=== PATIENT | male | born 1950 | race Caucasian/White ===

== ENCOUNTER 2019-11-01 05:17 | Inpatient (IN) | payer MEDICARE, BC ==
[2019-11-01] VITALS (10 sets, daily range): BP systolic 130–154; BP diastolic 72–86
[~2019-11-01] VITALS: Ht 172.7 cm; Wt 90.1 kg
[2019-11-01] MEDS ORDERED: famotidine/PF 10 mg/ml inj IV ONE (05:35)
[2019-11-01] MEDS ORDERED: pantoprazole 40 MG vial IV ONE (05:35)
[2019-11-01] MEDS ORDERED: HYDR-4353 PO (05:56)
[2019-11-01] MEDS ORDERED: TRAZ-251 PO (05:56)
[2019-11-01] MEDS ORDERED: SYN0.088T PO (05:56)
[2019-11-01] MEDS ORDERED: SIMV10TA2 PO (05:56)
[2019-11-01] MEDS ORDERED: LOSA25TA96 PO (05:56)
[2019-11-01] MEDS ORDERED: OMEP40CA13 PO (05:56)
[2019-11-01 06:01] LABS: BASOPHILS % (AUTO) 0.3 % (0-1); EOSINOPHILS % (AUTO) 0.5 % (0-6); HEMATOCRIT 36.3 % (42.0-52.0); HEMOGLOBIN 12.5 g/dl (14.0-17.9); LYMPHOCYTES # (AUTO) 1.1 X10'3 (1.1-4.8); LYMPHOCYTES % (AUTO) 15.1 % (21-51); MEAN CORPUSCULAR HEMOGLOBIN 35.8 PG (27.0-31.0); MEAN CORPUSCULAR HGB CONC 34.4 g/dL (33.0-36.5); MEAN CORPUSCULAR VOLUME 104.1 FL (78-98); MONOCYTES % (AUTO) 13.9 % (2-12); NEUTROPHILS % (AUTO) 70.2 % (42-75); PLATELET COUNT 146 X10'3 (140-440); RED BLOOD COUNT 3.49 X10'6 (4.70-6.10); WHITE BLOOD COUNT 7.1 X10'3 (4.5-11.0)
[2019-11-01 06:05] LABS: ALANINE AMINOTRANSFERASE 10 U/L (12-78); ALBUMIN 2.5 G/DL (3.4-5.0); ALBUMIN/GLOBULIN RATIO 0.8 (1.1-1.5); ALKALINE PHOSPHATASE 58 IU/L (46-116); ANION GAP 9 (8-16); ASPARTATE AMINO TRANSFERASE 31 U/L (10-37); BILIRUBIN,TOTAL 0.5 MG/DL (0.1-1.0); BLOOD UREA NITROGEN 25 MG/DL (7-18); BUN/CREATININE RATIO 11.7 (5.4-32.0); CHLORIDE 106 MMOL/L (99-107); CREATININE 2.14 MG/DL (0.60-1.10); GLUCOSE 114 MG/DL (70-104); SODIUM 142 MMOL/L (135-145); TOTAL CARBON DIOXIDE 27.5 MMOL/L (24-32); TOTAL PROTEIN 5.8 G/DL (6.4-8.2); eGFR 31 ML/MIN
[2019-11-01 06:06] LABS: D-DIMER 0.62 MG/L FEU (0-0.50)
[2019-11-01] MEDS ORDERED: heparin 25,000 UNIT/250ml bag 250 ML IV SCH (06:09)
[2019-11-01] MEDS ORDERED: heparin 10,000 units/1 ML INJ IV ONE ×2 (06:10→06:25)
[2019-11-01] MEDS ORDERED: heparin 10,000 units/1 ML INJ IV PRN (06:10)
--- NOTE | 2019-11-01 06:20 | NUR ---
received report from KRISHNA garrido
[2019-11-01] MEDS ORDERED: METO-292 PO (06:31)
--- NOTE | 2019-11-01 06:43 | NUR ---
ANATOLIY SQUIRES, HOME: [phone], CELL [phone]
--- NOTE | 2019-11-01 06:49 | NUR ---
CALLED LAB TO [facility] ON PT INR LABS PER BLOOD DRAW EARLIER, WILL START HEPARIN AFTER LABS HAVE RESULTED, WILL START SECOND IV NOW PT HAS FIELD START AND WILL BE GETTING HEPARIN. PT SPOUSE WAS AT BEDSIDE BUT HAS LEFT HER NUMBERS WITH TRIPLE DRUM OPERATOR TO CALL IF PT GOES UPSTAIRS TO IP BED.
--- NOTE | 2019-11-01 07:00 | NUR ---
PT VS STABLE, PT IS CURRENTLY PAIN FREE, INITIATED 20 GAUGE IV RAC, PT SITTING UP IN BED UPDATED TO PLAN OF CARE, ORIENTED TO CALL LIGHT, WAITING ON LAB RESULTS TO START IV HEPARIN.
[2019-11-01 07:09] LABS: PARTIAL THROMBOPLASTIN TIME 27 SECONDS (22-32)
[2019-11-01] MEDS ORDERED: normal saline 1000ml 1,000 ML IV SCH (07:21)
[2019-11-01] MEDS ORDERED: aspirin 81mg tab.chew PO STA (07:21)
[2019-11-01] MEDS ORDERED: potassium Cl 20 mEq SR tablet PO PRN ×2 (07:25)
[2019-11-01] MEDS ORDERED: nitroGLYCERIN 0.4mg SUBLingual tab SL PRN ×2 (07:25→11:00)
[2019-11-01] MEDS ORDERED: ondansetron/PF 4mg/2ml inj IV PRN (07:25)
[2019-11-01] MEDS ORDERED: acetaminophen 325mg tablet PO PRN ×2 (07:25)
[2019-11-01] MEDS ORDERED: magnesium 2GM in 50ml NS 50 ML IV PRN (07:25)
[2019-11-01] MEDS ORDERED: morphine 2 MG/ML inj. syringe IV PRN ×2 (07:25)
[2019-11-01] MEDS ORDERED: acetaminophen 650mg rectal suppository RC PRN (07:25)
[2019-11-01] MEDS ORDERED: magnesium hydroxide 30ml (MOM) UD suspension PO PRN (07:25)
[2019-11-01] MEDS ORDERED: potassium CL 10mEq/100ml bag 100 ML IV PRN ×2 (07:25)
[2019-11-01] MEDS ORDERED: diphenhydrAMINE 25mg capsule PO PRN (07:25)
[2019-11-01] MEDS ORDERED: mag hydrox/Alum hydrox/simeth 30ml oral suspension PO PRN (07:25)
[2019-11-01] MEDS ORDERED: HYDROcodone/acetaminophen 5mg/325mg tablet PO PRN (07:25)
[2019-11-01] MEDS ORDERED: bisacodyl 10mg suppository rectal RC PRN (07:25)
[2019-11-01] MEDS ORDERED: magnesium Cl slow-release 64mg tablet PO PRN (07:25)
[2019-11-01] MEDS ORDERED: magnesium 4gm in 100ml NS 100 ML IV PRN (07:25)
[2019-11-01] MEDS: heparin 25,000 UNIT/250ml bag 250 ML IV SCH (07:39)
[2019-11-01] MEDS: K and/or MAG REPLACEMENT MC SCH (08:00)
[2019-11-01] MEDS ORDERED: lisinopril 10 MG tablet PO SCH (08:00)
[2019-11-01] MEDS ORDERED: OMEP-297 PO (08:04)
[2019-11-01] MEDS ORDERED: TRAZ150T78 PO (08:04)
[2019-11-01] MEDS ORDERED: HYDR-3972 PO (08:04)
[2019-11-01] MEDS ORDERED: SIMV40TA PO (08:04)
[2019-11-01] MEDS ORDERED: LEVO175T2 PO (08:04)
[2019-11-01] MEDS ORDERED: LOSA100T57 PO (08:04)
--- NOTE | 2019-11-01 08:40 | NUR ---
Pt arrived from ED via gurney, able to ambulate by self, gait steady. Pt wanted to use the bathroom first.
[2019-11-01] MEDS ORDERED: PROP20TA6 PO (08:44)
[2019-11-01] MEDS ORDERED: FINA5TAB11 PO (08:44)
[2019-11-01] MEDS: aspirin 81mg tablet.DR PO SCH (09:04)
[2019-11-01] MEDS: carVEDilol 3.125mg tablet PO SCH ×2 (09:05→19:30)
[2019-11-01] MEDS: nitroGLYCERIN 0.2mg/hour patch TD SCH (09:06)
[2019-11-01 09:35] LABS: HEMOGLOBIN A1C 5.3 % (4.5-6.2)
[2019-11-01] MEDS ORDERED: metoprolol tartrate 1mg/ml inj IV PRN (11:00)
[2019-11-01] MEDS ORDERED: regadenoson 0.4mg/5ml syringe IV PRN (11:00)
[2019-11-01] MEDS ORDERED: aminophylline 250mg/10ml inj. IV PRN (11:00)
[2019-11-01] MEDS: normal saline 1000ml 1,000 ML IV SCH (11:20)
--- NOTE | 2019-11-01 11:49 | NUR ---
paged dr. Pineda, PAGER ID: [phone] MESSAGE: [phone] [phone] admit from ED for NSTEMI, Dr. Angelo doesn't think it is cardiac, he ordered a JOSEF, amylase and lipase, gallbladder U/S, and he wants a GI provider on the case for a GI scope. Are you okay with it?
--- NOTE | 2019-11-01 12:00 | NUR ---
Student documentation: I have reviewed and agree with all interventions, assessments performed and documented by Mari, student RN.
[2019-11-01] MEDS ORDERED: LORazepam 1 MG tablet PO PRN (12:35)
[2019-11-01] MEDS ORDERED: dextrose 50%-water 50ml dispensing syringe IV PRN ×2 (12:35)
[2019-11-01] MEDS ORDERED: haloperidol 5mg tablet PO PRN ×2 (12:35)
[2019-11-01] MEDS ORDERED: thiamine 100mg/ml 2ml inj. IV ONE ×2 (12:35)
[2019-11-01] MEDS ORDERED: haloperidol lactate 5mg/ml inj IM PRN ×2 (12:35)
[2019-11-01] MEDS ORDERED: LORazepam 2 mg/ml vial IV PRN (12:35)
[2019-11-01] MEDS ORDERED: thiamine inj. 100 MG in normal saline 100ml IV soln 99 ML IV ONE (13:15)
--- NOTE | 2019-11-01 17:00 | NUR ---
RN is not doing accucheck on pt. Pt's blood glucose was 85 at intake, he has been NPO. RN provided patient with jello and yogurt at 1700 since he will get a late tray
--- NOTE | 2019-11-01 18:00 | NUR ---
Problems reprioritized. Patient report given, questions answered & plan of care reviewed with KRISHNA Dominguez.
--- NOTE | 2019-11-01 20:35 | NUR ---
TELE NOTIFIED PATIENT PUT ON TELE #27
[2019-11-01] MEDS ORDERED: traZODone 150mg tablet PO PRN (20:50)
[2019-11-01] MEDS ORDERED: temazepam 15mg capsule PO PRN (21:00)
[2019-11-02] VITALS (17 sets, daily range): BP systolic 117–179; BP diastolic 59–95
[2019-11-02] MEDS: normal saline 1000ml 1,000 ML IV SCH ×3 (01:17→13:45)
[2019-11-02 04:15] LABS: BASOPHILS % (AUTO) 0.5 % (0-1); EOSINOPHILS # (AUTO) 0.1 X10'3 (0-0.9); EOSINOPHILS % (AUTO) 1.5 % (0-6); HEMATOCRIT 33.9 % (42.0-52.0); HEMOGLOBIN 11.9 g/dl (14.0-17.9); LYMPHOCYTES % (AUTO) 27.1 % (21-51); MEAN CORPUSCULAR HEMOGLOBIN 36.2 PG (27.0-31.0); MEAN CORPUSCULAR VOLUME 103.6 FL (78-98); MEAN PLATELET VOLUME 9.1 FL (7.4-10.4); MONOCYTES # (AUTO) 0.3 X10'3 (0-0.9); MONOCYTES % (AUTO) 9.6 % (2-12); NEUTROPHILS # (AUTO) 2.2 X10'3 (1.8-7.7); NEUTROPHILS % (AUTO) 61.3 % (42-75); PLATELET COUNT 131 X10'3 (140-440); RED BLOOD COUNT 3.27 X10'6 (4.70-6.10); RED CELL DISTRIBUTION WIDTH 13.3 % (11.5-14.5); WHITE BLOOD COUNT 3.6 X10'3 (4.5-11.0)
[2019-11-02 04:32] LABS: ALANINE AMINOTRANSFERASE 14 U/L (12-78); ALBUMIN 2.4 G/DL (3.4-5.0); ALBUMIN/GLOBULIN RATIO 0.7 (1.1-1.5); ALKALINE PHOSPHATASE 53 IU/L (46-116); ANION GAP 8 (8-16); ASPARTATE AMINO TRANSFERASE 25 U/L (10-37); BILIRUBIN,TOTAL 0.2 MG/DL (0.1-1.0); BLOOD UREA NITROGEN 16 MG/DL (7-18); BUN/CREATININE RATIO 10.5 (5.4-32.0); CALCIUM 7.5 MG/DL (8.5-10.1); CHLORIDE 108 MMOL/L (99-107); CHOL/HDL RATIO 2.1 (0.00-4.99); CHOLESTEROL 143 MG/DL (0-200); CREATININE 1.53 MG/DL (0.60-1.10); GLUCOSE 118 MG/DL (70-104); HDL CHOLESTEROL 68 MG/DL (35-60); LDL CHOLESTEROL 51 MG/DL (50-100); PHOSPHORUS 2.5 MG/DL (2.3-4.5); POTASSIUM 3.7 MMOL/L (3.5-5.1); SODIUM 143 MMOL/L (135-145); TOTAL PROTEIN 5.7 G/DL (6.4-8.2); TRIGLYCERIDES 117 MG/DL (20-135); eGFR 45 ML/MIN
[2019-11-02] MEDS: heparin 25,000 UNIT/250ml bag 250 ML IV SCH (05:21)
--- NOTE | 2019-11-02 05:29 | NUR ---
pt has critical mag of 1.0, Dr. Martinez notified. protocol started as ordered
--- NOTE | 2019-11-02 06:15 | NUR ---
gave report to KRISHNA Peterson and KRISHNA Lundy "o"
--- NOTE | 2019-11-02 06:15 | NUR ---
Patient in room MED 316. I have received report from KRISHNA Gay and had the opportunity to ask questions and assume patient care.
[2019-11-02 06:48] LABS: TOTAL CELLS COUNTED 100
[2019-11-02 06:49] LABS: LARGE PLATELETS FEW; PLATELET ESTIMATE DECREASED
[2019-11-02] MEDS: nitroGLYCERIN 0.2mg/hour patch TD SCH (07:47)
[2019-11-02] MEDS: aspirin 81mg tablet.DR PO SCH (07:47)
[2019-11-02] MEDS: atorvastatin 20mg tablet PO SCH (07:48)
[2019-11-02] MEDS: carVEDilol 3.125mg tablet PO SCH ×2 (07:48→19:17)
[2019-11-02] MEDS: finasteride 5mg tablet PO SCH (07:48)
[2019-11-02] MEDS: pantoprazole 40mg Tablet.DR PO SCH (07:48)
[2019-11-02] MEDS: levoTHYROXINE 175mcg tablet PO SCH (07:48)
[2019-11-02] MEDS: K and/or MAG REPLACEMENT MC SCH (07:49)
[2019-11-02] MEDS ORDERED: non-formulary drug (Propranolol Hcl 1 TAB) PO SCH (08:00)
[2019-11-02] MEDS ORDERED: losartan 50mg tablet PO SCH (08:00)
[2019-11-02] MEDS ORDERED: diphenhydrAMINE 25mg capsule PO ONE (08:00)
[2019-11-02] MEDS ORDERED: non-formulary drug (Omeprazole 2 CAP) PO SCH (08:00)
[2019-11-02] MEDS ORDERED: LIDOcaine/PRILOcaine 5gm cream TP ONE (10:00)
[2019-11-02] MEDS ORDERED: iohexol 350MG/ML 100ml bottle IV ONE (11:59)
[2019-11-02] MEDS ORDERED: iohexol 350 MG/ML 50ML vial IV ONE (11:59)
[2019-11-02] MEDS ORDERED: midazolam 2 mg/2 ml injection ONE ×2 (11:59→12:25)
[2019-11-02] MEDS ORDERED: LIDOcaine 1% (10mg/ml)w/preservative injection 20ml MDV ONE (11:59)
[2019-11-02] MEDS ORDERED: fentaNYL/PF 50MCG/1 ML 2ML syringe ONE (11:59)
[2019-11-02] MEDS ORDERED: proCHLORperazine 10 MG/2 ml inj ONE (12:26)
--- NOTE | 2019-11-02 13:30 | NUR ---
Pt drowsy but arouses to name Received pt from concrete laborer post heart cath Dr. Rosalba Sal at bedside writing orders for PRE op cabg VSS Pt offers no co of pain or discomfort Right groin a line sheath patent without hematoma noted Strong pedal pulses noted Turned form side to side for Skin assessment and linen chg lily well
--- NOTE | 2019-11-02 13:47 | NUR ---
Called report to CICU Charge Nurse; all questions answered.
[2019-11-02] MEDS ORDERED: nitroGLYCERIN-Tridil 50MG/D5W 250 ML IV PRN (13:50)
[2019-11-02] MEDS ORDERED: proCHLORperazine 10 MG/2 ml inj IV PRN (13:50)
[2019-11-02] MEDS ORDERED: OXAZEpam 15mg capsule PO PRN (13:50)
[2019-11-02] MEDS ORDERED: magnesium hydroxide 30ml (MOM) UD suspension PO PRN (14:00)
[2019-11-02] MEDS ORDERED: aspirin 81mg tablet.DR PO SCH (14:40)
[2019-11-02] MEDS ORDERED: aspirin 81mg tablet.DR PO ONE (14:50)
[2019-11-02] MEDS: metoprolol succinate 25mg (24-HOUR) SR. Tablet PO SCH (14:57)
--- NOTE | 2019-11-02 16:12 | NUR ---
Called Dr Angelo answering service to leave a message asking for parameters for Nitroglycerin gtt due to unclear instructions for PRN use.
--- NOTE | 2019-11-02 17:17 | NUR ---
PTT therapeutic at 60 will resume at current rate.
[2019-11-02] MEDS: LORazepam 2 mg/ml vial IV PRN ×2 (17:25→19:17)
--- NOTE | 2019-11-02 18:36 | NUR ---
Problems reprioritized. Patient report given, questions answered & plan of care reviewed with KRISHNA Reddy.
[2019-11-02] MEDS ORDERED: albuterol 2.5 MG/3 ML nebule NEB ONE (18:45)
[2019-11-02] MEDS: amLODIPine 2.5mg tablet PO SCH (19:17)
[2019-11-02] MEDS: docusate sod 100mg capsule PO SCH (19:17)
[2019-11-02] MEDS ORDERED: metoprolol tartrate 12.5mg (1/2 tablet) PO SCH (20:00)
[2019-11-03] VITALS (24 sets, daily range): BP systolic 121–171; BP diastolic 57–85
[2019-11-03] MEDS: normal saline 1000ml 1,000 ML IV SCH ×4 (00:04→23:11)
[2019-11-03 02:00] LABS: BASOPHILS % (AUTO) 0.4 % (0-1); EOSINOPHILS # (AUTO) 0.1 X10'3 (0-0.9); EOSINOPHILS % (AUTO) 2.3 % (0-6); HEMATOCRIT 32.9 % (42.0-52.0); HEMOGLOBIN 11.3 g/dl (14.0-17.9); LYMPHOCYTES % (AUTO) 19.3 % (21-51); MEAN CORPUSCULAR HEMOGLOBIN 36.1 PG (27.0-31.0); MEAN CORPUSCULAR HGB CONC 34.5 g/dL (33.0-36.5); MEAN CORPUSCULAR VOLUME 104.5 FL (78-98); MEAN PLATELET VOLUME 8.7 FL (7.4-10.4); MONOCYTES # (AUTO) 0.6 X10'3 (0-0.9); MONOCYTES % (AUTO) 10.7 % (2-12); NEUTROPHILS # (AUTO) 3.5 X10'3 (1.8-7.7); NEUTROPHILS % (AUTO) 67.3 % (42-75); PLATELET COUNT 132 X10'3 (140-440); RED BLOOD COUNT 3.14 X10'6 (4.70-6.10); RED CELL DISTRIBUTION WIDTH 13.6 % (11.5-14.5); WHITE BLOOD COUNT 5.2 X10'3 (4.5-11.0)
[2019-11-03 02:01] LABS: ABG BASE EXCESS -0.6 mmol/L (-2.0-3.0); ABG HCO3 23.7 mmol/L (22.0-26.0); ABG OXYGEN SATURATION 96.4 % (95-98); ABG PCO2 (T) 37.3 mmHg (35.0-45.0); ABG PO2 (T) 84.6 mmHg (83-108); FCOHb 0.2 % (0.5-1.5); FMetHb 0.2 % (0.3-1.12); PATIENT TEMPERATURE 36.8; RESPIRATORY RATE (OBSERVED) 14 b/min; TOTAL HEMOGLOBIN 12.1 G/dl (14.0-17.9)
[2019-11-03 02:25] LABS: ALANINE AMINOTRANSFERASE 10 U/L (12-78); ALBUMIN 2.2 G/DL (3.4-5.0); ALBUMIN/GLOBULIN RATIO 0.7 (1.1-1.5); ALKALINE PHOSPHATASE 50 IU/L (46-116); ANION GAP 5 (8-16); ASPARTATE AMINO TRANSFERASE 21 U/L (10-37); BILIRUBIN,TOTAL 0.2 MG/DL (0.1-1.0); BLOOD UREA NITROGEN 11 MG/DL (7-18); BUN/CREATININE RATIO 7.6 (5.4-32.0); CALCIUM 7.2 MG/DL (8.5-10.1); CHLORIDE 109 MMOL/L (99-107); CREATININE 1.44 MG/DL (0.60-1.10); GLUCOSE 127 MG/DL (70-104); MAGNESIUM 2.2 MG/DL (1.5-2.4); PHOSPHORUS 2.5 MG/DL (2.3-4.5); POTASSIUM 3.4 MMOL/L (3.5-5.1); SODIUM 140 MMOL/L (135-145); TOTAL PROTEIN 5.2 G/DL (6.4-8.2); eGFR 48 ML/MIN
[2019-11-03] MEDS: heparin 25,000 UNIT/250ml bag 250 ML IV SCH (03:52)
[2019-11-03 06:06] LABS: CLARITY,URINE CLEAR (Clear); COLOR,URINE YELLOW (Yellow); GLUCOSE, URINE NEGATIVE (Neg); KETONES,URINE NEGATIVE (Neg); LEUKOCYTE ESTERASE ,URINE NEGATIVE (Neg); NITRITES, URINE NEGATIVE (Neg); OCCULT BLOOD,URINE NEGATIVE (Neg); PROTEIN,URINE NEGATIVE (Neg); UROBILINOGEN,URINE 0.2 E.U/dL (0.2-1.0)
[2019-11-03 06:23] LABS: UA COLLECTION TYPE NON-SPECIFIED
[2019-11-03] MEDS ORDERED: potassium Cl 20mEq/100mL bag 100 ML IV PRN (07:10)
[2019-11-03] MEDS ORDERED: potassium Cl 20 mEq SR tablet PO PRN (07:10)
[2019-11-03] MEDS ORDERED: MESSAGE TO NURSING PO ONE ×5 (07:10→10:00)
[2019-11-03] MEDS ORDERED: vancomycin/NS 1 GM ADD-VANTAGE 250 ML IV ONE (07:10)
[2019-11-03] MEDS ORDERED: MALTODEXTRIN/FRUCTOSE 0.68 KCAL/ML LIQUID 296ML BOTTLE PO ONE (07:10)
[2019-11-03] MEDS ORDERED: magnesium 4gm in 100ml NS 100 ML IV PRN (07:10)
[2019-11-03] MEDS ORDERED: magnesium 2GM in 50ml NS 50 ML IV PRN (07:10)
[2019-11-03] MEDS ORDERED: cefazolin/dext.iso 2gm/50ml 50 ML IV ONE (07:10)
[2019-11-03] MEDS ORDERED: potassium CL 10mEq/100ml bag 100 ML IV PRN (07:10)
[2019-11-03] MEDS ORDERED: gabapentin 400mg capsule PO ONE (07:10)
[2019-11-03] MEDS: nitroGLYCERIN 0.2mg/hour patch TD SCH (08:00)
[2019-11-03] MEDS ORDERED: metoprolol tartrate 12.5mg (1/2 tablet) PO SCH (08:00)
[2019-11-03] MEDS: K and/or MAG REPLACEMENT MC SCH (08:00)
[2019-11-03] MEDS: metoprolol succinate 25mg (24-HOUR) SR. Tablet PO SCH (08:00)
[2019-11-03] MEDS: carVEDilol 3.125mg tablet PO SCH ×2 (08:19→20:17)
[2019-11-03] MEDS: pantoprazole 40mg Tablet.DR PO SCH (08:19)
[2019-11-03] MEDS: losartan 50mg tablet PO SCH (08:19)
[2019-11-03] MEDS: docusate sod 100mg capsule PO SCH ×2 (08:19→20:00)
[2019-11-03] MEDS: mupirocin 2% nasal ointment 1gm UD NS SCH ×2 (08:20→20:00)
[2019-11-03] MEDS: amLODIPine 2.5mg tablet PO SCH ×2 (08:20→20:17)
[2019-11-03] MEDS: finasteride 5mg tablet PO SCH (08:20)
[2019-11-03] MEDS: atorvastatin 20mg tablet PO SCH (08:21)
[2019-11-03] MEDS: levoTHYROXINE 175mcg tablet PO SCH (08:23)
[2019-11-03] MEDS: HYDROcodone/acetaminophen 10/325mg tab PO PRN ×3 (09:33→20:17)
[2019-11-03] MEDS ORDERED: ringers solution, lacted 1,000 ML IV ONE (10:14)
[2019-11-03] MEDS: LORazepam 2 mg/ml vial IV PRN ×3 (11:24→23:01)
[2019-11-03] MEDS ORDERED: LORazepam 1 MG tablet PO PRN (12:35)
[2019-11-03] MEDS ORDERED: LORazepam 2 mg/ml vial IV PRN (12:35)
--- NOTE | 2019-11-03 17:33 | NUR ---
Two rings removed and placed in a labeled container with patients belongings
[2019-11-03] MEDS ORDERED: insulin regular, human 100 UNIT in normal saline 100ml IV soln 100 ML IV SCH ×2 (23:56)
[2019-11-04] VITALS (23 sets, daily range): BP systolic 105–165; BP diastolic 43–78
[2019-11-04] MEDS ORDERED: insulin glargine (Lantus) pen - multi-dose SQ PRN
--- NOTE | 2019-11-04 | NUR ---
Bed bath and first wipe down with chg completed.
[2019-11-04 02:59] LABS: BASOPHILS % (AUTO) 0.6 % (0-1); EOSINOPHILS # (AUTO) 0.1 X10'3 (0-0.9); EOSINOPHILS % (AUTO) 3.2 % (0-6); HEMATOCRIT 31.8 % (42.0-52.0); HEMOGLOBIN 10.9 g/dl (14.0-17.9); LYMPHOCYTES # (AUTO) 1.3 X10'3 (1.1-4.8); LYMPHOCYTES % (AUTO) 34.2 % (21-51); MEAN CORPUSCULAR HEMOGLOBIN 36.2 PG (27.0-31.0); MEAN CORPUSCULAR HGB CONC 34.1 g/dL (33.0-36.5); MEAN CORPUSCULAR VOLUME 106.2 FL (78-98); MEAN PLATELET VOLUME 9.3 FL (7.4-10.4); MONOCYTES # (AUTO) 0.4 X10'3 (0-0.9); MONOCYTES % (AUTO) 9.9 % (2-12); NEUTROPHILS % (AUTO) 52.1 % (42-75); PLATELET COUNT 123 X10'3 (140-440); RED CELL DISTRIBUTION WIDTH 13.5 % (11.5-14.5); WHITE BLOOD COUNT 3.9 X10'3 (4.5-11.0)
[2019-11-04 03:02] LABS: ALANINE AMINOTRANSFERASE 8 U/L (12-78); ALBUMIN 2.1 G/DL (3.4-5.0); ALBUMIN/GLOBULIN RATIO 0.8 (1.1-1.5); ALKALINE PHOSPHATASE 46 IU/L (46-116); ANION GAP 7 (8-16); ASPARTATE AMINO TRANSFERASE 15 U/L (10-37); BILIRUBIN,TOTAL 0.1 MG/DL (0.1-1.0); BLOOD UREA NITROGEN 6 MG/DL (7-18); BUN/CREATININE RATIO 5.4 (5.4-32.0); CALCIUM 6.9 MG/DL (8.5-10.1); CHLORIDE 109 MMOL/L (99-107); CREATININE 1.11 MG/DL (0.60-1.10); GLUCOSE 108 MG/DL (70-104); MAGNESIUM 1.6 MG/DL (1.5-2.4); PHOSPHORUS 2.3 MG/DL (2.3-4.5); POTASSIUM 4.2 MMOL/L (3.5-5.1); SODIUM 141 MMOL/L (135-145); TOTAL CARBON DIOXIDE 24.9 MMOL/L (24-32); TOTAL PROTEIN 4.9 G/DL (6.4-8.2); eGFR 65 ML/MIN
[2019-11-04] MEDS ORDERED: ROPIVAcaine 0.5% (5mg/ml) 30ml vial ONE (05:13)
[2019-11-04] MEDS ORDERED: LORazepam 2 mg/ml vial IV ONE (06:00)
[2019-11-04] MEDS ORDERED: famotidine 20mg tablet PO ONE (06:00)
[2019-11-04] MEDS ORDERED: famotidine 10mg tablet PO ONE (06:10)
[2019-11-04] MEDS: carVEDilol 3.125mg tablet PO SCH (06:38)
[2019-11-04] MEDS ORDERED: cefazolin/dext.iso 2gm/100ml 100 ML IV ONE (06:40)
[2019-11-04] MEDS ORDERED: cefazolin/dext.iso 2gm/50ml 50 ML IV ONE (06:40)
--- NOTE | 2019-11-04 06:50 | NUR ---
Pt down to OR. Patient stable. Some mild oozing at cath site; no hematoma present.
[2019-11-04] MEDS ORDERED: sevoflurane 250ml liquid IH ONE (07:00)
[2019-11-04] MEDS ORDERED: SUFENTANIL CITRATE 50 MCG/ML 2ml ampule IV ONE (07:05)
[2019-11-04] MEDS ORDERED: MIDAZolam 5mg/5ml vial ONE (07:05)
[2019-11-04] MEDS ORDERED: LIDOcaine 2% (20mg/ml) 5ml vial ONE (07:06)
[2019-11-04] MEDS ORDERED: propofol inj 20 ML IV ONE (07:06)
[2019-11-04] MEDS ORDERED: pancuronium br 1mg/ml inj IV ONE (07:06)
[2019-11-04] MEDS: pantoprazole 40mg Tablet.DR PO SCH (07:30)
[2019-11-04 07:50] LABS: ABG BASE EXCESS -4.4 mmol/L (-2.0-3.0); ABG HCO3 19.8 mmol/L (22.0-26.0); ABG OXYGEN SATURATION 99.7 % (95-98); ABG PCO2 33.3 mmHg (35.0-45.0); ABG PH 7.392 (7.350-7.450); ABG PO2 511.5 mmHg (60.0-100.0); CL (ABG) 108 mmol/L (99-107); FCOHb 0.2 % (0.5-1.5); FMetHb 0.2 % (0.3-1.12); FO2Hb 99.3 % (94-100); GLUCOSE (ABG) 186 mg/dl (70-104); K (ABG) 4.3 mmol/L (3.3-5.1); NA (ABG) 134 mmol/L (135-145); TOTAL HEMOGLOBIN 11.4 G/dl (14.0-17.9)
[2019-11-04] MEDS ORDERED: albumin (human) 25% 100 ML IV solution IV ONE (08:00)
[2019-11-04] MEDS ORDERED: LIDOcaine 2% (20 mg/ml) 5ml cardiac syringe ONE (08:00)
[2019-11-04] MEDS ORDERED: magnesium sulf 1 GM/2 ML ONE (08:00)
[2019-11-04] MEDS ORDERED: potassium Cl 2 mEq/ml inj IV ONE (08:00)
[2019-11-04] MEDS: atorvastatin 20mg tablet PO SCH (08:00)
[2019-11-04] MEDS ORDERED: calcium chloride 100 MG/1 ML inj IV ONE (08:00)
[2019-11-04] MEDS: docusate sod 100mg capsule PO SCH (08:00)
[2019-11-04] MEDS ORDERED: phenylephrine 10mg/ml inj. ONE (08:00)
[2019-11-04] MEDS: amLODIPine 2.5mg tablet PO SCH (08:00)
[2019-11-04] MEDS: mupirocin 2% nasal ointment 1gm UD NS SCH ×2 (08:00→20:31)
[2019-11-04] MEDS ORDERED: methylPREDNISolone sod. succ. 500mg inj ONE (08:00)
[2019-11-04] MEDS: losartan 50mg tablet PO SCH (08:00)
[2019-11-04] MEDS ORDERED: aminocaproic acid 250 MG/1 ML inj. ONE (08:00)
[2019-11-04] MEDS ORDERED: sodium bicarbonate (8.4%) 1 mEq/ml syringe ONE (08:00)
[2019-11-04] MEDS: finasteride 5mg tablet PO SCH (08:00)
[2019-11-04] MEDS ORDERED: heparin 10,000 units/1 ML INJ ONE (08:00)
[2019-11-04] MEDS: levoTHYROXINE 175mcg tablet PO SCH (08:00)
[2019-11-04] MEDS: nitroGLYCERIN 0.2mg/hour patch TD SCH (08:00)
[2019-11-04] MEDS: K and/or MAG REPLACEMENT MC SCH (08:00)
[2019-11-04 08:35] LABS: ABG BASE EXCESS VENOUS -5.5 mmol/L; ABG HCO3 VENOUS 21.4 mmol/L; ABG PCO2 VENOUS 47.6 mmHg; ABG PO2 VENOUS 51.7 mmHg; CL (ABG) 106 mmol/L (99-107); FCOHb VENOUS 0.3 %; FHHb VENOUS 17.2 %; FMetHb VENOUS 0.3 %; FO2Hb VENOUS 82.2 %; GLUCOSE (ABG) 182 mg/dl (70-104); IONIZED CA (ABG) 1.02 mmol/L (1.03-1.32); K (ABG) 4.4 mmol/L (3.3-5.1); NA (ABG) 135 mmol/L (135-145); TOTAL HEMOGLOBIN 10.7 G/dl (14.0-17.9)
[2019-11-04] MEDS ORDERED: albumin (Human) 5% 250ml 250 ML IV ONE ×2 (08:46)
[2019-11-04 09:45] LABS: ABG BASE EXCESS -1.3 mmol/L (-2.0-3.0); ABG OXYGEN SATURATION 99.5 % (95-98); ABG PCO2 36.5 mmHg (35.0-45.0); ABG PH 7.418 (7.350-7.450); ABG PO2 512.9 mmHg (60.0-100.0); CL (ABG) 106 mmol/L (99-107); FCOHb 0.7 % (0.5-1.5); FMetHb 0.6 % (0.3-1.12); FO2Hb 98.2 % (94-100); GLUCOSE (ABG) 132 mg/dl (70-104); IONIZED CA (ABG) 0.86 mmol/L (1.03-1.32); K (ABG) 5.1 mmol/L (3.3-5.1); NA (ABG) 131 mmol/L (135-145); TOTAL HEMOGLOBIN 8.1 G/dl (14.0-17.9)
[2019-11-04 09:45] LABS: ABG BASE EXCESS VENOUS -1.3 mmol/L; ABG HCO3 VENOUS 23.6 mmol/L; ABG PCO2 VENOUS 40.2 mmHg; ABG PO2 VENOUS 52.1 mmHg; CL (ABG) 106 mmol/L (99-107); FCOHb VENOUS 0.6 %; FHHb VENOUS 13.3 %; FMetHb VENOUS 0.5 %; FO2Hb VENOUS 85.6 %; GLUCOSE (ABG) 131 mg/dl (70-104); IONIZED CA (ABG) 0.86 mmol/L (1.03-1.32); K (ABG) 5.4 mmol/L (3.3-5.1); NA (ABG) 132 mmol/L (135-145); TOTAL HEMOGLOBIN 8.2 G/dl (14.0-17.9)
[2019-11-04 10:15] LABS: ABG HCO3 22.9 mmol/L (22.0-26.0); ABG OXYGEN SATURATION 99.5 % (95-98); ABG PCO2 39.5 mmHg (35.0-45.0); ABG PH 7.381 (7.350-7.450); ABG PO2 389.1 mmHg (60.0-100.0); CL (ABG) 107 mmol/L (99-107); FCOHb 0.8 % (0.5-1.5); FMetHb 0.5 % (0.3-1.12); FO2Hb 98.2 % (94-100); GLUCOSE (ABG) 153 mg/dl (70-104); IONIZED CA (ABG) 0.88 mmol/L (1.03-1.32); K (ABG) 4.8 mmol/L (3.3-5.1); NA (ABG) 132 mmol/L (135-145); TOTAL HEMOGLOBIN 7.9 G/dl (14.0-17.9)
[2019-11-04] MEDS: heparin 25,000 UNIT/250ml bag 250 ML IV SCH (10:34)
[2019-11-04 10:35] LABS: ABG BASE EXCESS 0.5 mmol/L (-2.0-3.0); ABG HCO3 25.2 mmol/L (22.0-26.0); ABG OXYGEN SATURATION 99.4 % (95-98); ABG PCO2 40.6 mmHg (35.0-45.0); ABG PH 7.411 (7.350-7.450); ABG PO2 322.4 mmHg (60.0-100.0); CL (ABG) 106 mmol/L (99-107); FMetHb 0.5 % (0.3-1.12); FO2Hb 97.9 % (94-100); GLUCOSE (ABG) 159 mg/dl (70-104); IONIZED CA (ABG) 0.85 mmol/L (1.03-1.32); K (ABG) 5.1 mmol/L (3.3-5.1); NA (ABG) 130 mmol/L (135-145)
[2019-11-04 10:50] LABS: ABG BASE EXCESS -0.5 mmol/L (-2.0-3.0); ABG HCO3 24.6 mmol/L (22.0-26.0); ABG OXYGEN SATURATION 99.2 % (95-98); ABG PCO2 42.3 mmHg (35.0-45.0); ABG PH 7.382 (7.350-7.450); ABG PO2 273.9 mmHg (60.0-100.0); CL (ABG) 106 mmol/L (99-107); FCOHb 0.3 % (0.5-1.5); FMetHb 0.5 % (0.3-1.12); FO2Hb 98.4 % (94-100); GLUCOSE (ABG) 171 mg/dl (70-104); IONIZED CA (ABG) 0.88 mmol/L (1.03-1.32); K (ABG) 5.1 mmol/L (3.3-5.1); NA (ABG) 132 mmol/L (135-145); TOTAL HEMOGLOBIN 8.8 G/dl (14.0-17.9)
[2019-11-04 11:21] LABS: ABG BASE EXCESS -2.1 mmol/L (-2.0-3.0); ABG HCO3 23.3 mmol/L (22.0-26.0); ABG OXYGEN SATURATION 99.3 % (95-98); ABG PCO2 42.6 mmHg (35.0-45.0); ABG PH 7.356 (7.350-7.450); ABG PO2 300.1 mmHg (60.0-100.0); CL (ABG) 108 mmol/L (99-107); FCOHb 0.7 % (0.5-1.5); FMetHb 0.8 % (0.3-1.12); FO2Hb 97.8 % (94-100); GLUCOSE (ABG) 164 mg/dl (70-104); NA (ABG) 132 mmol/L (135-145); TOTAL HEMOGLOBIN 8.1 G/dl (14.0-17.9)
[2019-11-04 11:50] LABS: ABG BASE EXCESS -2.6 mmol/L (-2.0-3.0); ABG OXYGEN SATURATION 99.1 % (95-98); ABG PCO2 43.8 mmHg (35.0-45.0); ABG PH 7.339 (7.350-7.450); CL (ABG) 111 mmol/L (99-107); FCOHb 0.9 % (0.5-1.5); FMetHb 0.9 % (0.3-1.12); FO2Hb 97.3 % (94-100); GLUCOSE (ABG) 149 mg/dl (70-104); IONIZED CA (ABG) 1.03 mmol/L (1.03-1.32); K (ABG) 5.2 mmol/L (3.3-5.1); NA (ABG) 134 mmol/L (135-145); TOTAL HEMOGLOBIN 7.5 G/dl (14.0-17.9)
[2019-11-04 12:15] LABS: ABG BASE EXCESS VENOUS -2.9 mmol/L; ABG HCO3 VENOUS 23.1 mmol/L; ABG PCO2 VENOUS 45.8 mmHg; ABG PO2 VENOUS 54.5 mmHg; CL (ABG) 110 mmol/L (99-107); FCOHb VENOUS 0.4 %; FO2Hb VENOUS 84.6 %; GLUCOSE (ABG) 129 mg/dl (70-104); IONIZED CA (ABG) 1.04 mmol/L (1.03-1.32); K (ABG) 4.5 mmol/L (3.3-5.1); NA (ABG) 135 mmol/L (135-145); TOTAL HEMOGLOBIN 8.3 G/dl (14.0-17.9)
[2019-11-04] MEDS ORDERED: niCARDipine-NS 40mg/200ml IVPB 200 ML IV PRN (12:49)
[2019-11-04] MEDS ORDERED: nitroGLYCERIN-Tridil 50MG/D5W 250 ML IV PRN (12:49)
[2019-11-04] MEDS ORDERED: DOPamine 400mg/D5W 250ml 250 ML IV PRN (12:49)
[2019-11-04] MEDS ORDERED: sodium phosphate inj. 30 MMOL in dextrose 5%-water 250 ML IV PRN (12:50)
[2019-11-04] MEDS ORDERED: metoclopramide 5 mg/ml inj IV PRN (12:50)
[2019-11-04] MEDS ORDERED: ondansetron/PF 4mg/2ml inj IV PRN (12:50)
[2019-11-04] MEDS ORDERED: potassium Cl 20 mEq SR tablet PO PRN (12:50)
[2019-11-04] MEDS: insulin regular, human inj. 100 UNITS in normal saline 100ml IV soln 100 ML IV SCH ×4 (12:50→21:04)
[2019-11-04] MEDS ORDERED: normal saline 250ml IV soln 250 ML IV PRN (12:50)
[2019-11-04] MEDS ORDERED: magnesium hydroxide 30ml (MOM) UD suspension PO PRN (12:50)
[2019-11-04] MEDS ORDERED: sodium phosphate inj. 15 MMOL in dextrose 5%-water 150 ML IV PRN (12:50)
[2019-11-04] MEDS ORDERED: Neutra Phos packet PO PRN (12:50)
[2019-11-04] MEDS ORDERED: potassium Cl 20mEq/100mL bag 100 ML IV PRN (12:50)
[2019-11-04] MEDS ORDERED: dextrose 50%-water 50ml dispensing syringe IV PRN ×2 (12:50)
[2019-11-04] MEDS ORDERED: acetaminophen 325mg tablet PO PRN ×2 (12:50)
[2019-11-04] MEDS ORDERED: pantoprazole 40 MG vial IV ONE (12:50)
[2019-11-04] MEDS ORDERED: magnesium 4gm in 100ml NS 100 ML IV PRN (12:50)
[2019-11-04] MEDS: insulin Lispro (HumaLOG) vial - multi-dose SQ SCH ×2 (13:00→18:00)
--- NOTE | 2019-11-04 13:03 | NUR ---
Received to room 2044, accompanied by MDs and surgical crew. Placed on ventilator, to hospital monitor, arterial line and PA line pressure monitored. Chest tubes to suction at 20 cm. Hoover cath to gravity drainage. Dressings are dry and intact. See assessment record. All vasoactive drugs are infusing via central line.
[2019-11-04 13:21] LABS: ABG BASE EXCESS -2.8 mmol/L (-2.0-3.0); ABG HCO3 22.5 mmol/L (22.0-26.0); ABG OXYGEN SATURATION 98.4 % (95-98); ABG PCO2 (T) 41.2 mmHg (35.0-45.0); ABG PH (T) 7.356 (7.350-7.450); ABG PO2 (T) 163.7 mmHg (83-108); FCOHb 0.2 % (0.5-1.5); FMetHb 0.2 % (0.3-1.12); MINUTE VOLUME 10 L/min; PEEP 5 cm H2O; RESPIRATORY RATE 16 b/min; RESPIRATORY RATE (OBSERVED) 19 b/min; TIDAL VOLUME 500 mL; TOTAL HEMOGLOBIN 10.3 G/dl (14.0-17.9)
[2019-11-04 13:29] LABS: BASOPHILS % (AUTO) 0.2 % (0-1); EOSINOPHILS % (AUTO) 0.3 % (0-6); HEMATOCRIT 27.4 % (42.0-52.0); HEMOGLOBIN 9.4 g/dl (14.0-17.9); LYMPHOCYTES # (AUTO) 0.5 X10'3 (1.1-4.8); LYMPHOCYTES % (AUTO) 6.4 % (21-51); MEAN CORPUSCULAR HEMOGLOBIN 36.6 PG (27.0-31.0); MEAN CORPUSCULAR HGB CONC 34.3 g/dL (33.0-36.5); MEAN CORPUSCULAR VOLUME 106.8 FL (78-98); MEAN PLATELET VOLUME 9.2 FL (7.4-10.4); MONOCYTES # (AUTO) 0.5 X10'3 (0-0.9); MONOCYTES % (AUTO) 5.3 % (2-12); NEUTROPHILS # (AUTO) 7.5 X10'3 (1.8-7.7); NEUTROPHILS % (AUTO) 87.8 % (42-75); PLATELET COUNT 89 X10'3 (140-440); RED BLOOD COUNT 2.56 X10'6 (4.70-6.10); RED CELL DISTRIBUTION WIDTH 13.6 % (11.5-14.5); WHITE BLOOD COUNT 8.6 X10'3 (4.5-11.0)
--- NOTE | 2019-11-04 13:30 | NUR ---
After x-ray to confirm tube placement, it was noted that the central line pointing upward; Dr. Li aware and says that is okay and meds will be okay to administer; however, he recommended using the PA line and peripheral IVs if possible. Relay to noc shift to possibly leave PA introducer sheath in for central line support. Other lines stable. Will continue to monitor.
[2019-11-04 13:38] LABS: PARTIAL THROMBOPLASTIN TIME 35 SECONDS (22-32)
[2019-11-04] MEDS: gabapentin 300mg capsule PO SCH ×2 (13:44→20:31)
[2019-11-04] MEDS: sodium chloride 0.45% 1,000 ML IV SCH (13:45)
[2019-11-04 14:01] LABS: LARGE PLATELETS FEW; PLATELET ESTIMATE DECREASED; POLYCHROMASIA FEW
[2019-11-04 14:02] LABS: STOMATOCYTES 1+
[2019-11-04 14:07] LABS: ALBUMIN 2.8 G/DL (3.4-5.0); ALBUMIN/GLOBULIN RATIO 1.6 (1.1-1.5); ALKALINE PHOSPHATASE 30 IU/L (46-116); ANION GAP 7 (8-16); ASPARTATE AMINO TRANSFERASE 29 U/L (10-37); BILIRUBIN,TOTAL 0.4 MG/DL (0.1-1.0); BLOOD UREA NITROGEN 6 MG/DL (7-18); BUN/CREATININE RATIO 4.3 (5.4-32.0); CALCIUM 6.7 MG/DL (8.5-10.1); CHLORIDE 110 MMOL/L (99-107); GLUCOSE 107 MG/DL (70-104); POTASSIUM 4.5 MMOL/L (3.5-5.1); SODIUM 140 MMOL/L (135-145); TOTAL CARBON DIOXIDE 23.5 MMOL/L (24-32); TOTAL PROTEIN 4.5 G/DL (6.4-8.2); eGFR 50 ML/MIN
[2019-11-04 14:08] LABS: ALANINE AMINOTRANSFERASE < 6 U/L (12-78)
[2019-11-04 14:14] LABS: MAGNESIUM 2.2 MG/DL (1.5-2.4)
[2019-11-04] MEDS: magnesium 2GM in 50ml NS 50 ML IV PRN (14:22)
[2019-11-04] MEDS: albumin (Human) 5% 250ml 250 ML IV PRN ×2 (15:06→15:07)
[2019-11-04] MEDS: morphine 4 MG/ML inj SYRINge IV PRN ×2 (16:07→18:35)
[2019-11-04] MEDS: ceFAZolin 1GM/D5W- ADD-VANTAGE 50 ML IV SCH ×2 (16:21→23:53)
--- NOTE | 2019-11-04 18:20 | NUR ---
Problems reprioritized. Patient report given, questions answered & plan of care reviewed with Iram KELLER.
--- NOTE | 2019-11-04 18:30 | NUR ---
Received report on pt in room 2044 from KRISHNA Andrade. Pt is drowsy with sedation still clearing, following commands and moving all extremities. Pt is intubated at 40% FiO2 with O2 sats at 97%. All vasoactive drugs infusing via CVL and PA line per parameters. Insulin infusing per Insulin gtt protocol. Chest tubes to suction at 20 cm with serosanguinous output, symmetrical rise and fall of chest cavity with no crepitus noted, dressing are clean, dry, and intact. On groundwater monitoring technician with arterial line, CVP, and PA line pressures monitored. Hoover catheter to gravity drainage with optimal urine output noted, ,bowel sounds hypoactive. See assessment record.
[2019-11-04 18:56] LABS: BASOPHILS % (AUTO) 0.1 % (0-1); EOSINOPHILS % (AUTO) 0 % (0-6); HEMATOCRIT 24.5 % (42.0-52.0); HEMOGLOBIN 8.4 g/dl (14.0-17.9); LYMPHOCYTES # (AUTO) 0.6 X10'3 (1.1-4.8); LYMPHOCYTES % (AUTO) 6.1 % (21-51); MEAN CORPUSCULAR HEMOGLOBIN 36.5 PG (27.0-31.0); MEAN CORPUSCULAR VOLUME 107.1 FL (78-98); MEAN PLATELET VOLUME 9.5 FL (7.4-10.4); MONOCYTES # (AUTO) 0.3 X10'3 (0-0.9); MONOCYTES % (AUTO) 3.2 % (2-12); NEUTROPHILS # (AUTO) 8.2 X10'3 (1.8-7.7); NEUTROPHILS % (AUTO) 90.6 % (42-75); PLATELET COUNT 90 X10'3 (140-440); RED BLOOD COUNT 2.29 X10'6 (4.70-6.10); RED CELL DISTRIBUTION WIDTH 13.3 % (11.5-14.5)
[2019-11-04 19:05] LABS: ALBUMIN 3.1 G/DL (3.4-5.0); ANION GAP 11 (8-16); BLOOD UREA NITROGEN 9 MG/DL (7-18); BUN/CREATININE RATIO 6.9 (5.4-32.0); CHLORIDE 110 MMOL/L (99-107); GLUCOSE 195 MG/DL (70-104); MAGNESIUM 2.6 MG/DL (1.5-2.4); PHOSPHORUS 2.3 MG/DL (2.3-4.5); SODIUM 142 MMOL/L (135-145); eGFR 54 ML/MIN
[2019-11-04 19:08] LABS: POTASSIUM 5.5 MMOL/L (3.5-5.1)
[2019-11-04] MEDS ORDERED: docusate sodium 100mg/10ml UD cup PO SCH (20:00)
[2019-11-04] MEDS ORDERED: docusate sod 100mg capsule PO SCH (20:00)
[2019-11-04] MEDS: vancomycin/NS 1 GM ADD-VANTAGE 250 ML IV SCH (20:31)
--- NOTE | 2019-11-04 23:00 | NUR ---
Femostop removed after 6 hours with no complications, no hematoma noted, dressing CDI.
[2019-11-05] VITALS (22 sets, daily range): BP systolic 98–151; BP diastolic 43–71
--- NOTE | 2019-11-05 01:30 | NUR ---
Pt awake, following commands, moving all extremities, and overbreathing the vent rate of 10 - placed on spontaneous breathing trial.
[2019-11-05 02:31] LABS: ABG BASE EXCESS -7.1 mmol/L (-2.0-3.0); ABG HCO3 17.4 mmol/L (22.0-26.0); ABG OXYGEN SATURATION 97.8 % (95-98); ABG PCO2 (T) 30.8 mmHg (35.0-45.0); ABG PO2 (T) 120.3 mmHg (83-108); FO2Hb 97.8 % (94-100); MINUTE VOLUME 8 L/min; PATIENT TEMPERATURE 37.1; PEEP 5 cm H2O; RESPIRATORY RATE (OBSERVED) 18 b/min; TIDAL VOLUME 573 mL; TOTAL HEMOGLOBIN 8.2 G/dl (14.0-17.9)
--- NOTE | 2019-11-05 02:45 | NUR ---
After period of spontaneous breathing trial and weaning parameters, pt extubated to 4L NC with no complications.
[2019-11-05] MEDS: morphine 4 MG/ML inj SYRINge IV PRN (02:57)
[2019-11-05] MEDS: HYDROcodone/acetaminophen 10/325mg tab PO PRN ×4 (03:41→22:23)
--- NOTE | 2019-11-05 04:10 | NUR ---
Pt stating that 2mg Morphine did not help with pain. Unfortunately, 4mg early in the evening made him very sleepy and hypotensive. Administered [place] for pain relief as pt is now tolerating small amounts of water.
[2019-11-05 04:25] LABS: BASOPHILS % (AUTO) 0.1 % (0-1); EOSINOPHILS % (AUTO) 0 % (0-6); HEMATOCRIT 23.8 % (42.0-52.0); HEMOGLOBIN 8.1 g/dl (14.0-17.9); LYMPHOCYTES # (AUTO) 0.5 X10'3 (1.1-4.8); LYMPHOCYTES % (AUTO) 4.6 % (21-51); MEAN CORPUSCULAR HEMOGLOBIN 36.3 PG (27.0-31.0); MEAN CORPUSCULAR VOLUME 106.8 FL (78-98); MEAN PLATELET VOLUME 9.6 FL (7.4-10.4); MONOCYTES # (AUTO) 0.8 X10'3 (0-0.9); MONOCYTES % (AUTO) 7.9 % (2-12); NEUTROPHILS # (AUTO) 9.1 X10'3 (1.8-7.7); NEUTROPHILS % (AUTO) 87.4 % (42-75); PLATELET COUNT 84 X10'3 (140-440); RED BLOOD COUNT 2.22 X10'6 (4.70-6.10); RED CELL DISTRIBUTION WIDTH 13.6 % (11.5-14.5); WHITE BLOOD COUNT 10.4 X10'3 (4.5-11.0)
[2019-11-05 04:36] LABS: PARTIAL THROMBOPLASTIN TIME 29 SECONDS (22-32)
[2019-11-05 04:38] LABS: ALANINE AMINOTRANSFERASE 8 U/L (12-78); ALBUMIN 2.9 G/DL (3.4-5.0); ALBUMIN/GLOBULIN RATIO 1.5 (1.1-1.5); ALKALINE PHOSPHATASE 28 IU/L (46-116); ASPARTATE AMINO TRANSFERASE 35 U/L (10-37); BILIRUBIN,TOTAL 0.2 MG/DL (0.1-1.0); BLOOD UREA NITROGEN 9 MG/DL (7-18); BUN/CREATININE RATIO 6.7 (5.4-32.0); CALCIUM 6.9 MG/DL (8.5-10.1); CREATININE 1.34 MG/DL (0.60-1.10); GLUCOSE 106 MG/DL (70-104); MAGNESIUM 2.2 MG/DL (1.5-2.4); PHOSPHORUS 3.3 MG/DL (2.3-4.5); POTASSIUM 4.5 MMOL/L (3.5-5.1); TOTAL CARBON DIOXIDE 22.3 MMOL/L (24-32); TOTAL PROTEIN 4.9 G/DL (6.4-8.2); eGFR 53 ML/MIN
[2019-11-05 04:56] LABS: ANION GAP 11 (8-16); CHLORIDE 111 MMOL/L (99-107); SODIUM 144 MMOL/L (135-145)
[2019-11-05] MEDS: magnesium 2GM in 50ml NS 50 ML IV PRN (05:09)
--- NOTE | 2019-11-05 06:29 | NUR ---
Problems reprioritized. Patient report given, questions answered & plan of care reviewed with KRISHNA Durant.
[2019-11-05] MEDS ORDERED: aspirin 325mg tablet, delayed-release (Ecotrin) PO SCH (08:00)
[2019-11-05] MEDS ORDERED: metoprolol tartrate 12.5mg (1/2 tablet) PO SCH (08:00)
[2019-11-05] MEDS: atorvastatin 10mg tablet PO SCH (08:59)
[2019-11-05] MEDS: gabapentin 300mg capsule PO SCH ×3 (08:59→20:23)
[2019-11-05] MEDS: insulin Lispro (HumaLOG) vial - multi-dose SQ SCH ×4 (09:00→20:30)
[2019-11-05] MEDS: mupirocin 2% nasal ointment 1gm UD NS SCH ×2 (09:01→20:24)
[2019-11-05] MEDS: ceFAZolin 1GM/D5W- ADD-VANTAGE 50 ML IV SCH ×3 (09:01→23:42)
[2019-11-05] MEDS: vancomycin/NS 1 GM ADD-VANTAGE 250 ML IV SCH ×2 (10:09→20:24)
[2019-11-05] MEDS: aspirin 81mg tablet.DR PO SCH (10:21)
--- NOTE | 2019-11-05 11:17 | NUR ---
Vitor trigger: Vitor 12 w/ CABG surgical wound. Pt s/p CABG POD one per MD note. LBM 11/01 to receive colace today. MCV 106.8 hx occasional etoh per EMR; JEFERSON d/w RN regarding thiamin/folic/MVI per MD approval. PO 50-75% avg fluctuates prior to OR and refused dinner last night. Will monitor for PO and ONS needs post-op. Will need CABG ed once stable prior to d/c. Rec: 1. continue NCS diet 2. monitor for ONS needs 3. routine bowel care post-op 4. wt per rx 5. CABG ed once stable prior to d/c Addendum: 11/05/19 at [address] Amended: Links added.
[2019-11-05] MEDS ORDERED: LORazepam 2 mg/ml vial IV PRN (12:35)
[2019-11-05] MEDS ORDERED: LORazepam 1 MG tablet PO PRN (12:35)
[2019-11-05] MEDS ORDERED: dextrose 50%-water 50ml dispensing syringe IV PRN ×2 (12:50)
[2019-11-05] MEDS ORDERED: glucagon, human recombinant 1mg kit SUBCUT PRN (12:50)
[2019-11-05] MEDS ORDERED: dextrose ORAL solution 15 GM/59 ML bottle PO PRN ×2 (12:50)
--- NOTE | 2019-11-05 15:41 | NUR ---
Patient's rings (2) taken home by .
--- NOTE | 2019-11-05 18:30 | NUR ---
Patient in room ICU 2044. I have received report from KRISHNA Durant and had the opportunity to ask questions and assume patient care.
--- NOTE | 2019-11-05 20:15 | NUR ---
Pt declining ambulation, he is extremely fatigued, placed in bed for the evening.
[2019-11-05] MEDS: docusate sod 100mg capsule PO SCH (20:24)
[2019-11-05] MEDS: metoprolol tartrate 25mg tablet PO SCH (20:24)
[2019-11-05] MEDS: insulin glargine (Lantus) pen - multi-dose SQ SCH (20:30)
[2019-11-05] MEDS: traZODone 150mg tablet PO SCH (22:05)
[2019-11-06] VITALS (22 sets, daily range): BP systolic 87–124; BP diastolic 42–71
[2019-11-06 02:37] LABS: BASOPHILS % (AUTO) 0.1 % (0-1); EOSINOPHILS % (AUTO) 0 % (0-6); HEMOGLOBIN 7.3 g/dl (14.0-17.9); LYMPHOCYTES # (AUTO) 0.7 X10'3 (1.1-4.8); LYMPHOCYTES % (AUTO) 7.2 % (21-51); MEAN CORPUSCULAR HEMOGLOBIN 36.6 PG (27.0-31.0); MEAN CORPUSCULAR HGB CONC 33.9 g/dL (33.0-36.5); MONOCYTES % (AUTO) 10.8 % (2-12); NEUTROPHILS # (AUTO) 7.7 X10'3 (1.8-7.7); NEUTROPHILS % (AUTO) 81.9 % (42-75); PLATELET COUNT 70 X10'3 (140-440); RED BLOOD COUNT 1.99 X10'6 (4.70-6.10); RED CELL DISTRIBUTION WIDTH 13.5 % (11.5-14.5); WHITE BLOOD COUNT 9.4 X10'3 (4.5-11.0)
--- NOTE | 2019-11-06 02:39 | NUR ---
Patient in room ICU 2044. I have received report from Iram KELLER and had the opportunity to ask questions and assume patient care.
--- NOTE | 2019-11-06 02:43 | NUR ---
Problems reprioritized. Patient report given, questions answered & plan of care reviewed with Kimberly Garcia.
[2019-11-06 02:46] LABS: HEMATOCRIT 21.5 % (42.0-52.0)
--- NOTE | 2019-11-06 03:02 | NUR ---
Called Dr Navarrete this morning for a Hct of 21.5. No new orders at this time.
[2019-11-06 03:04] LABS: ALBUMIN 2.6 G/DL (3.4-5.0); ANION GAP 3 (8-16); BLOOD UREA NITROGEN 17 MG/DL (7-18); BUN/CREATININE RATIO 9.8 (5.4-32.0); CALCIUM 6.3 MG/DL (8.5-10.1); CHLORIDE 108 MMOL/L (99-107); CREATININE 1.74 MG/DL (0.60-1.10); GLUCOSE 128 MG/DL (70-104); MAGNESIUM 2.5 MG/DL (1.5-2.4); PHOSPHORUS 3.7 MG/DL (2.3-4.5); POTASSIUM 5.5 MMOL/L (3.5-5.1); SODIUM 137 MMOL/L (135-145); TOTAL CARBON DIOXIDE 25.9 MMOL/L (24-32); eGFR 39 ML/MIN
[2019-11-06 05:16] LABS: ACTIVATED CLOTTING TIME 127 SEC (101-148)
[2019-11-06 05:16] LABS: ACT @ 1.70 U 346 SEC (193-297); ACT @ 2.84 U 453 SEC (260-420); BASELINE ACT 151 SEC (101-148); PATIENT WEIGHT 82.0k KG
[2019-11-06] MEDS: HYDROcodone/acetaminophen 10/325mg tab PO PRN ×4 (05:26→21:30)
--- NOTE | 2019-11-06 06:26 | NUR ---
Patient in room ICU 2044. I have received report from Radha KELLER and had the opportunity to ask questions and assume patient care. Will continue to monitor patient.
[2019-11-06] MEDS: metoprolol tartrate 25mg tablet PO SCH ×2 (06:34→20:13)
[2019-11-06 07:20] LABS: PLATELET ESTIMATE DECREASED
[2019-11-06 07:21] LABS: ANISOCYTOSIS 1+
[2019-11-06] MEDS: atorvastatin 10mg tablet PO SCH (07:21)
[2019-11-06] MEDS: pantoprazole 40mg Tablet.DR PO SCH (07:21)
[2019-11-06] MEDS: docusate sod 100mg capsule PO SCH ×2 (07:21→20:13)
[2019-11-06] MEDS: levoTHYROXINE 175mcg tablet PO SCH (07:21)
[2019-11-06] MEDS: aspirin 81mg tablet.DR PO SCH (07:21)
[2019-11-06] MEDS: gabapentin 300mg capsule PO SCH (07:21)
[2019-11-06] MEDS: sodium chloride 0.45% 1,000 ML IV SCH (07:23)
[2019-11-06] MEDS: mupirocin 2% nasal ointment 1gm UD NS SCH (07:25)
[2019-11-06] MEDS: morphine 4 MG/ML inj SYRINge IV PRN (07:27)
--- NOTE | 2019-11-06 08:30 | NUR ---
CORTES Short at the bedside, due to minimal chest tube output, chest tubes were DC's. Patient tolerated well, receiving 4L O2 via NC, will medicate patient for pain and continue to monitor.
[2019-11-06] MEDS: insulin Lispro (HumaLOG) vial - multi-dose SQ SCH ×2 (09:00→13:51)
--- NOTE | 2019-11-06 09:00 | NUR ---
Patient did not qualify to receive insulin after breakfast per Nutritional and Correctional scales. Will continue to monitor.
[2019-11-06 09:07] LABS: TOTAL HEMOGLOBIN 6.7 G/dl (14.0-17.9)
[2019-11-06 09:08] LABS: K (ABG) 6.3 mmol/L (3.3-5.1)
--- NOTE | 2019-11-06 13:15 | NUR ---
Patient wanted to eat lunch in bed, stating that he was still very tired from transferring to the chair for breakfast. Will continue to monitor.
[2019-11-06] MEDS ORDERED: furosemide 40mg/4ml inj IV ONE (15:10)
--- NOTE | 2019-11-06 15:55 | NUR ---
Dr. Duke and CORTES Short at bedside, abdominal x ray ordered. Will continue to monitor.
--- NOTE | 2019-11-06 16:20 | NUR ---
Spoke to x-ray personnel who called to to clarify order. Confirmed x ray is needed tonight, it will be done at the bedside. Will continue to monitor.
--- NOTE | 2019-11-06 18:00 | NUR ---
Patient in room ICU 2044. I have received report from KRISHNA Alfaro and had the opportunity to ask questions and assume patient care.
--- NOTE | 2019-11-06 18:28 | NUR ---
Problems reprioritized. Patient report given, questions answered & plan of care reviewed with Stacey KELLER. Patient stable at transfer of care.
[2019-11-06] MEDS ORDERED: LORazepam 2 mg/ml vial IV PRN (19:05)
[2019-11-06] MEDS: LORazepam 1 MG tablet PO PRN (20:14)
[2019-11-06] MEDS: traZODone 150mg tablet PO SCH (20:14)
[2019-11-06] MEDS: insulin glargine (Lantus) pen - multi-dose SQ SCH (21:55)
[2019-11-06] MEDS: diatr meglu/diatrizoate 30ml oral sol.-(3 dose) bottle PO SCH (23:39)
[2019-11-07] VITALS (17 sets, daily range): BP systolic 93–148; BP diastolic 46–75
[2019-11-07 03:40] LABS: BASOPHILS % (AUTO) 0.3 % (0-1); EOSINOPHILS # (AUTO) 0.1 X10'3 (0-0.9); EOSINOPHILS % (AUTO) 0.7 % (0-6); HEMOGLOBIN 7.2 g/dl (14.0-17.9); LYMPHOCYTES # (AUTO) 0.7 X10'3 (1.1-4.8); LYMPHOCYTES % (AUTO) 8.5 % (21-51); MEAN CORPUSCULAR HEMOGLOBIN 36.5 PG (27.0-31.0); MEAN CORPUSCULAR HGB CONC 33.9 g/dL (33.0-36.5); MEAN CORPUSCULAR VOLUME 107.9 FL (78-98); MEAN PLATELET VOLUME 10.2 FL (7.4-10.4); MONOCYTES % (AUTO) 11.4 % (2-12); NEUTROPHILS # (AUTO) 6.7 X10'3 (1.8-7.7); NEUTROPHILS % (AUTO) 79.1 % (42-75); PLATELET COUNT 80 X10'3 (140-440); RED BLOOD COUNT 1.96 X10'6 (4.70-6.10); RED CELL DISTRIBUTION WIDTH 13.8 % (11.5-14.5); WHITE BLOOD COUNT 8.4 X10'3 (4.5-11.0)
[2019-11-07 03:44] LABS: ALBUMIN 2.3 G/DL (3.4-5.0); ANION GAP 7 (8-16); BLOOD UREA NITROGEN 16 MG/DL (7-18); BUN/CREATININE RATIO 12.6 (5.4-32.0); CALCIUM 7.1 MG/DL (8.5-10.1); CHLORIDE 106 MMOL/L (99-107); CREATININE 1.27 MG/DL (0.60-1.10); GLUCOSE 133 MG/DL (70-104); PHOSPHORUS 2.5 MG/DL (2.3-4.5); POTASSIUM 4.8 MMOL/L (3.5-5.1); SODIUM 137 MMOL/L (135-145); TOTAL CARBON DIOXIDE 24.5 MMOL/L (24-32); eGFR 56 ML/MIN
[2019-11-07 03:46] LABS: HEMATOCRIT 21.1 % (42.0-52.0)
[2019-11-07] MEDS: morphine 4 MG/ML inj SYRINge IV PRN (05:33)
--- NOTE | 2019-11-07 06:15 | NUR ---
Spoke with pharmacy, ok to give Gastrografin at 0700 and 0900 before procedure.
--- NOTE | 2019-11-07 06:16 | NUR ---
Problems reprioritized. Patient report given, questions answered & plan of care reviewed with KRISHNA Kidd.
[2019-11-07] MEDS: docusate sod 100mg capsule PO SCH ×2 (07:12→20:25)
[2019-11-07] MEDS: metoprolol tartrate 25mg tablet PO SCH ×2 (07:12→20:27)
[2019-11-07] MEDS: aspirin 81mg tablet.DR PO SCH (07:12)
[2019-11-07] MEDS: diatr meglu/diatrizoate 30ml oral sol.-(3 dose) bottle PO SCH ×2 (07:12→09:26)
[2019-11-07] MEDS: levoTHYROXINE 175mcg tablet PO SCH (07:12)
[2019-11-07] MEDS: atorvastatin 10mg tablet PO SCH (07:12)
[2019-11-07] MEDS: pantoprazole 40mg Tablet.DR PO SCH (07:12)
--- NOTE | 2019-11-07 07:48 | NUR ---
Pt with 09/07 noted in RUQ. Medium sized, purplish hematoma noted around previous CT site. CT pending. H/h stable at 7.2. Pt HDS. Will continue to monitor closely. Addendum: 11/07/19 at 0750 by Feroz Urbina RN Amended: Links added.
[2019-11-07] MEDS ORDERED: magnesium 2GM in 50ml NS 50 ML IV PRN (09:10)
[2019-11-07] MEDS ORDERED: magnesium 4gm in 100ml NS 100 ML IV PRN (09:10)
[2019-11-07] MEDS ORDERED: potassium Cl 20 mEq SR tablet PO PRN (09:10)
[2019-11-07] MEDS ORDERED: potassium Cl 20mEq/100mL bag 100 ML IV PRN (09:10)
[2019-11-07] MEDS: HYDROcodone/acetaminophen 10/325mg tab PO PRN ×2 (09:28→13:58)
[2019-11-07] MEDS: insulin Lispro (HumaLOG) vial - multi-dose SQ SCH (13:12)
--- NOTE | 2019-11-07 15:10 | NUR ---
Pt picked up by OR staff at 1458. Agatroban handoff given with OR RNs. VSS upon leaving. Dentures removed prior to leaving. MD crabtree at bedside and aware of INR of 4.2. Addendum: 11/07/19 at 1513 by Feroz Urbina RN Entered in error.
--- NOTE | 2019-11-07 15:40 | NUR ---
Received report and accompanied pt. to ACCE.
--- NOTE | 2019-11-07 15:43 | NUR ---
Pt transferred to ACCE 308. Handoff given to receiving RN. VSS upon transport. All belongings with pt including glasses and dentures. Will continue to monitor.
[2019-11-07] MEDS: LORazepam 1 MG tablet PO PRN (16:48)
--- NOTE | 2019-11-07 17:51 | NUR ---
Pt. is very impulsive. Does not do good sternal precautions. Pt. educated on the importance of sternal precautions and the importance of using his call light so he does not have a fall. Bed alarm now in use.
--- NOTE | 2019-11-07 18:01 | NUR ---
Problems reprioritized. Patient report given, questions answered & plan of care reviewed with Christine KELLER.
--- NOTE | 2019-11-07 18:20 | NUR ---
Patient in room MED 312. I have received report from KRISHNA Quesada and had the opportunity to ask questions and assume patient care.
[2019-11-07] MEDS: potassium Cl 20 mEq SR tablet PO SCH (20:00)
[2019-11-07] MEDS: traZODone 150mg tablet PO SCH (20:25)
[2019-11-07] MEDS: magnesium Cl slow-release 64mg tablet PO SCH (20:25)
[2019-11-07] MEDS: insulin glargine (Lantus) pen - multi-dose SQ SCH (23:04)
[2019-11-08] VITALS (7 sets, daily range): BP systolic 127–164; BP diastolic 61–78
[2019-11-08] MEDS: HYDROcodone/acetaminophen 10/325mg tab PO PRN ×2 (00:55→08:28)
--- NOTE | 2019-11-08 06:10 | NUR ---
Patient in room MED 312. I have received report from KRISHNA King and had the opportunity to ask questions and assume patient care.
[2019-11-08 06:37] LABS: BASOPHILS % (AUTO) 0.3 % (0-1); EOSINOPHILS # (AUTO) 0.1 X10'3 (0-0.9); EOSINOPHILS % (AUTO) 1.1 % (0-6); HEMATOCRIT 24.1 % (42.0-52.0); HEMOGLOBIN 8.2 g/dl (14.0-17.9); LYMPHOCYTES # (AUTO) 0.7 X10'3 (1.1-4.8); LYMPHOCYTES % (AUTO) 8.6 % (21-51); MEAN CORPUSCULAR HEMOGLOBIN 36.5 PG (27.0-31.0); MEAN CORPUSCULAR HGB CONC 34.2 g/dL (33.0-36.5); MEAN CORPUSCULAR VOLUME 106.9 FL (78-98); MEAN PLATELET VOLUME 9.3 FL (7.4-10.4); MONOCYTES # (AUTO) 1.2 X10'3 (0-0.9); MONOCYTES % (AUTO) 15.1 % (2-12); NEUTROPHILS # (AUTO) 5.9 X10'3 (1.8-7.7); NEUTROPHILS % (AUTO) 74.9 % (42-75); PLATELET COUNT 127 X10'3 (140-440); RED BLOOD COUNT 2.25 X10'6 (4.70-6.10); RED CELL DISTRIBUTION WIDTH 13.8 % (11.5-14.5); WHITE BLOOD COUNT 7.8 X10'3 (4.5-11.0)
--- NOTE | 2019-11-08 06:44 | NUR ---
Problems reprioritized. Patient report given, questions answered & plan of care reviewed with KRISHNA Rubin.
[2019-11-08 07:26] LABS: ALBUMIN 2.4 G/DL (3.4-5.0); ANION GAP 11 (8-16); BLOOD UREA NITROGEN 12 MG/DL (7-18); BUN/CREATININE RATIO 12.1 (5.4-32.0); CALCIUM 7.7 MG/DL (8.5-10.1); CHLORIDE 105 MMOL/L (99-107); CREATININE 0.99 MG/DL (0.60-1.10); GLUCOSE 105 MG/DL (70-104); POTASSIUM 4.5 MMOL/L (3.5-5.1); SODIUM 138 MMOL/L (135-145); TOTAL CARBON DIOXIDE 21.9 MMOL/L (24-32); eGFR 75 ML/MIN
[2019-11-08] MEDS: potassium Cl 20 mEq SR tablet PO SCH ×2 (08:00→20:51)
[2019-11-08] MEDS: levoTHYROXINE 175mcg tablet PO SCH (08:23)
[2019-11-08] MEDS: docusate sod 100mg capsule PO SCH ×2 (08:24→20:51)
[2019-11-08] MEDS: aspirin 81mg tablet.DR PO SCH (08:24)
[2019-11-08] MEDS: pantoprazole 40mg Tablet.DR PO SCH (08:24)
[2019-11-08] MEDS: metoprolol tartrate 25mg tablet PO SCH ×2 (08:25→20:52)
[2019-11-08] MEDS: atorvastatin 10mg tablet PO SCH (08:25)
[2019-11-08] MEDS: finasteride 5mg tablet PO SCH (08:32)
[2019-11-08] MEDS: magnesium Cl slow-release 64mg tablet PO SCH ×2 (09:33→20:51)
[2019-11-08] MEDS: LORazepam 1 MG tablet PO PRN ×2 (12:56→20:51)
--- NOTE | 2019-11-08 18:08 | NUR ---
Problems reprioritized. Patient report given, questions answered & plan of care reviewed with KRISHNA Faustin.
[2019-11-08] MEDS: traZODone 150mg tablet PO SCH (20:51)
[2019-11-08] MEDS ORDERED: losartan 50mg tablet PO SCH (21:00)
[2019-11-09] MEDS: HYDROcodone/acetaminophen 10/325mg tab PO PRN ×2 (01:00→08:50)
[2019-11-09 02:00] VITALS: BP 138/63
[2019-11-09 05:58] LABS: BASOPHILS % (AUTO) 0.3 % (0-1); EOSINOPHILS # (AUTO) 0.1 X10'3 (0-0.9); EOSINOPHILS % (AUTO) 1.6 % (0-6); HEMATOCRIT 22.6 % (42.0-52.0); HEMOGLOBIN 7.7 g/dl (14.0-17.9); LYMPHOCYTES # (AUTO) 0.8 X10'3 (1.1-4.8); LYMPHOCYTES % (AUTO) 12.3 % (21-51); MEAN CORPUSCULAR HEMOGLOBIN 36.4 PG (27.0-31.0); MEAN CORPUSCULAR HGB CONC 34.2 g/dL (33.0-36.5); MEAN CORPUSCULAR VOLUME 106.2 FL (78-98); MEAN PLATELET VOLUME 8.9 FL (7.4-10.4); MONOCYTES # (AUTO) 0.9 X10'3 (0-0.9); MONOCYTES % (AUTO) 14.9 % (2-12); NEUTROPHILS # (AUTO) 4.4 X10'3 (1.8-7.7); NEUTROPHILS % (AUTO) 70.9 % (42-75); PLATELET COUNT 168 X10'3 (140-440); RED BLOOD COUNT 2.13 X10'6 (4.70-6.10); RED CELL DISTRIBUTION WIDTH 13.8 % (11.5-14.5); WHITE BLOOD COUNT 6.3 X10'3 (4.5-11.0)
[2019-11-09 06:00] VITALS: BP 161/65
--- NOTE | 2019-11-09 06:26 | NUR ---
Problems reprioritized. Patient report given to TanyaRn, questions answered & plan of care reviewed with .
--- NOTE | 2019-11-09 06:29 | NUR ---
Patient in room MED 312. I have received report from KRISHNA Faustin and had the opportunity to ask questions and assume patient care.
[2019-11-09 07:00] LABS: ALBUMIN 2.4 G/DL (3.4-5.0); ANION GAP 7 (8-16); BLOOD UREA NITROGEN 11 MG/DL (7-18); BUN/CREATININE RATIO 10.1 (5.4-32.0); CALCIUM 8.2 MG/DL (8.5-10.1); CHLORIDE 107 MMOL/L (99-107); CREATININE 1.09 MG/DL (0.60-1.10); GLUCOSE 101 MG/DL (70-104); POTASSIUM 4.6 MMOL/L (3.5-5.1); SODIUM 138 MMOL/L (135-145); TOTAL CARBON DIOXIDE 23.7 MMOL/L (24-32); eGFR 67 ML/MIN
[2019-11-09] MEDS: LORazepam 1 MG tablet PO PRN (07:55)
[2019-11-09] MEDS: potassium Cl 20 mEq SR tablet PO SCH (08:00)
[2019-11-09 08:01] LABS: MAGNESIUM 1.9 MG/DL (1.5-2.4)
[2019-11-09] MEDS: aspirin 81mg tablet.DR PO SCH (08:46)
[2019-11-09] MEDS: magnesium Cl slow-release 64mg tablet PO SCH (08:46)
[2019-11-09] MEDS: pantoprazole 40mg Tablet.DR PO SCH (08:46)
[2019-11-09] MEDS: finasteride 5mg tablet PO SCH (08:46)
[2019-11-09] MEDS: levoTHYROXINE 175mcg tablet PO SCH (08:46)
[2019-11-09] MEDS: metoprolol tartrate 25mg tablet PO SCH (08:48)
[2019-11-09] MEDS: atorvastatin 10mg tablet PO SCH (08:48)
[2019-11-09] MEDS: docusate sod 100mg capsule PO SCH (08:48)
[2019-11-09 11:00] VITALS: BP 112/66
[2019-11-09] MEDS ORDERED: amiodarone 150mg/dext, iso-os 100 ML IV ONE (14:55)
--- NOTE | 2019-11-09 14:59 | NUR ---
Reassessment: Pt/family seen by RD for written/verbal CABG/heart healthy diet eds w/ RD contact information provided. Pt PO remains low 0-25% avg meals. Pt reports no appetite and still feels terrible post-op. To transfer to [facility] today per EMR; RD encouraged ONS usage at rehab as well as ONS options to bring in from outside in order to help meet protein needs post-op. Pt remained passive during ed but SO/family reported understanding importance of post-op nutrition for wound healing and recovery. LBM 11/08 multiple following constipation per MD note. Will continue to monitor. Rec: 1. continue NCS diet 2. encourage ONS PO at LTAC 3. routine bowel care post-op 4. wt per rx Addendum: 11/09/19 at [address] Amended: Links added.
[2019-11-09 15:00] VITALS: BP 110/59
--- NOTE | 2019-11-09 16:46 | NUR ---
pt. transferred to [facility] via [facility] at 1630. report was call into nurse Windy and all questions were answered. pt. left with all personal belongings and paperwork for [facility]. pt. IV was d/c intact.
== END 2019-11-09 16:30 | DRG 233 ==
LOC: ER 05:18 → ED HOLD 07:59 → MED 3N 08:28 → CICU 2S 11-02 13:17 → ICU 2S 11-04 13:02 → MED 3N 11-07 15:32
PROVIDERS: ADMIT Family Medicine; ATTEND Thoracic Surgery (Cardiothoracic Vascular Surgery)
PROC: 3E033HZ Introduction of Radioactive Substance into Peripheral Vein, Percutaneous Approach (ICD-10-PCS; 2019-11-01)
PROC: 4A02XM4 Measurement of Cardiac Total Activity, External Approach (ICD-10-PCS; 2019-11-01)
PROC: 4A023N7 Measurement of Cardiac Sampling and Pressure, Left Heart, Percutaneous Approach (ICD-10-PCS; 2019-11-02)
PROC: B2111ZZ Fluoroscopy of Multiple Coronary Arteries using Low Osmolar Contrast (ICD-10-PCS; 2019-11-02)
PROC: B2151ZZ Fluoroscopy of Left Heart using Low Osmolar Contrast (ICD-10-PCS; 2019-11-02)
PROC: B3111ZZ Fluoroscopy of Right Brachiocephalic-Subclavian Artery using Low Osmolar Contrast (ICD-10-PCS; 2019-11-02)
PROC: B3121ZZ Fluoroscopy of Left Subclavian Artery using Low Osmolar Contrast (ICD-10-PCS; 2019-11-02)
PROC: B41F1ZZ Fluoroscopy of Right Lower Extremity Arteries using Low Osmolar Contrast (ICD-10-PCS; 2019-11-02)
PROC: 02100Z9 Bypass Coronary Artery, One Artery from Left Internal Mammary, Open Approach (ICD-10-PCS; 2019-11-04)
PROC: 021109W Bypass Coronary Artery, Two Arteries from Aorta with Autologous Venous Tissue, Open Approach (ICD-10-PCS; 2019-11-04)
PROC: 06BQ4ZZ Excision of Left Saphenous Vein, Percutaneous Endoscopic Approach (ICD-10-PCS; 2019-11-04)
PROC: 07B80ZX Excision of Right Internal Mammary Lymphatic, Open Approach, Diagnostic (ICD-10-PCS; 2019-11-04)
PROC: 02HV33Z Insertion of Infusion Device into Superior Vena Cava, Percutaneous Approach (ICD-10-PCS; 2019-11-04)
PROC: B548ZZA Ultrasonography of Superior Vena Cava, Guidance (ICD-10-PCS; 2019-11-04)
PROC: 02HP32Z Insertion of Monitoring Device into Pulmonary Trunk, Percutaneous Approach (ICD-10-PCS; 2019-11-04)
PROC: 4A133B3 Monitoring of Arterial Pressure, Pulmonary, Percutaneous Approach (ICD-10-PCS; 2019-11-04)
PROC: 4A1239Z Monitoring of Cardiac Output, Percutaneous Approach (ICD-10-PCS; 2019-11-04)
PROC: 5A1221Z Performance of Cardiac Output, Continuous (ICD-10-PCS; 2019-11-04)
PROC: B24BZZ4 Ultrasonography of Heart with Aorta, Transesophageal (ICD-10-PCS; 2019-11-04)
PROC: 02100Z8 Bypass Coronary Artery, One Artery from Right Internal Mammary, Open Approach (ICD-10-PCS; principal; 2019-11-04 07:00)
DX: I21.4 Non-ST elevation (NSTEMI) myocardial infarction (principal); N17.0 Acute kidney failure with tubular necrosis; N18.4 Chronic kidney disease, stage 4 (severe); D62 Acute posthemorrhagic anemia; I12.9 Hypertensive chronic kidney disease with stage 1 through stage 4 chronic kidney disease, or unspecified chronic kidney disease; E03.9 Hypothyroidism, unspecified; E78.5 Hyperlipidemia, unspecified; F10.20 Alcohol dependence, uncomplicated; F32.9 Major depressive disorder, single episode, unspecified; F40.240 Claustrophobia; F41.0 Panic disorder [episodic paroxysmal anxiety]; F41.1 Generalized anxiety disorder; G89.29 Other chronic pain; I25.110 Atherosclerotic heart disease of native coronary artery with unstable angina pectoris; I65.22 Occlusion and stenosis of left carotid artery; K21.9 Gastro-esophageal reflux disease without esophagitis; M54.9 Dorsalgia, unspecified; N40.0 Benign prostatic hyperplasia without lower urinary tract symptoms; I25.2 Old myocardial infarction; Z79.82 Long term (current) use of aspirin; Z79.891 Long term (current) use of opiate analgesic; Z79.899 Other long term (current) drug therapy; Z80.8 Family history of malignant neoplasm of other organs or systems; Z82.3 Family history of stroke; Z82.49 Family history of ischemic heart disease and other diseases of the circulatory system; Z85.820 Personal history of malignant melanoma of skin; Z86.718 Personal history of other venous thrombosis and embolism; Z91.19 Patient's noncompliance with other medical treatment and regimen; Z87.891 Personal history of nicotine dependence
CPT/HCPCS: 0232T; 93306; 93312; 93325; 93458; 96374; 96375; 99285; 36415; 36600; 71045; 74018; 74022; 74176; 76700; 78452; 80048; 80053; 80061; 81003; 82150; 82330; 82435; 82803; 82947; 82948; 83036; 83690; 83735; 83880; 84100; 84132; 84295; 84443; 84484; 85018; 85025; 85347; 85379; 85384; 85610; 85730; 86022; 86885; 86900; 86901; 86920; 87081; 88305; 93005; 93017; 93880; 93970; 94002; 94010; 94760; 97116; 97161; 97530; 99152; 99153; A4618; A6258; A6402; A6446; A6449; A7000; A7048; A9500; C1713; C1751; C1769; C9113; G0378; J0690; J0780; J1644; J1815; J1940; J2001; J2060; J2150; J2250; J2270; J2370; J2405; J2704; J2785; J2795; J2930; J3010; J3370; J3411; J3475; J3480; J3490; J7030; J7040; J7050; J7060; J7120; P9045; P9047; Q0163; Q9963; Q9967

== ENCOUNTER 2020-05-08 12:19 | Emergency (ER) | payer MEDICARE, BC ==
[~2020-05-08] VITALS: Ht 172.7 cm; Wt 91.8 kg
[~2020-05-08 12:19] MED LIST: FINA5TAB11 PO; HYDR-3972 PO; LEVO175T2 PO; LOSA100T57 PO; METO-292 PO; OMEP20CA15 PO; PROP20TA6 PO; SIMV40TA PO; TRAZ150T78 PO
[2020-05-08 12:58] LABS: BASOPHILS % (AUTO) 0.7 % (0-1); EOSINOPHILS # (AUTO) 0.2 X10'3 (0-0.9); EOSINOPHILS % (AUTO) 2.2 % (0-6); HEMATOCRIT 43.5 % (42.0-52.0); HEMOGLOBIN 14.7 g/dl (14.0-17.9); LYMPHOCYTES # (AUTO) 1.3 X10'3 (1.1-4.8); LYMPHOCYTES % (AUTO) 18.5 % (21-51); MEAN CORPUSCULAR HEMOGLOBIN 31.1 PG (27.0-31.0); MEAN CORPUSCULAR HGB CONC 33.7 g/dL (33.0-36.5); MEAN CORPUSCULAR VOLUME 92.1 FL (78-98); MEAN PLATELET VOLUME 9.6 FL (7.4-10.4); MONOCYTES # (AUTO) 0.6 X10'3 (0-0.9); MONOCYTES % (AUTO) 8.8 % (2-12); NEUTROPHILS # (AUTO) 4.8 X10'3 (1.8-7.7); NEUTROPHILS % (AUTO) 69.8 % (42-75); PLATELET COUNT 183 X10'3 (140-440); RED BLOOD COUNT 4.73 X10'6 (4.70-6.10); RED CELL DISTRIBUTION WIDTH 14.5 % (11.5-14.5); WHITE BLOOD COUNT 6.9 X10'3 (4.5-11.0)
[2020-05-08 13:10] LABS: ALANINE AMINOTRANSFERASE 12 U/L (12-78); ALBUMIN 3.9 G/DL (3.4-5.0); ALBUMIN/GLOBULIN RATIO 1.1 (1.1-1.5); ALKALINE PHOSPHATASE 64 IU/L (46-116); ANION GAP 7 (8-16); ASPARTATE AMINO TRANSFERASE 20 U/L (10-37); BILIRUBIN,TOTAL 0.4 MG/DL (0.1-1.0); BLOOD UREA NITROGEN 16 MG/DL (7-18); BUN/CREATININE RATIO 10.2 (5.4-32.0); CALCIUM 8.8 MG/DL (8.5-10.1); CHLORIDE 105 MMOL/L (99-107); CREATININE 1.57 MG/DL (0.60-1.10); GLUCOSE 101 MG/DL (70-104); POTASSIUM 4.2 MMOL/L (3.5-5.1); SODIUM 142 MMOL/L (135-145); TOTAL CARBON DIOXIDE 30.2 MMOL/L (24-32); TOTAL PROTEIN 7.3 G/DL (6.4-8.2); eGFR 44 ML/MIN
[2020-05-08 15:10] VITALS: BP 179/88
== END 2020-05-08 15:14 | disposition home or self-care (01) ==
LOC: ER 12:20
DX: I25.10 Atherosclerotic heart disease of native coronary artery without angina pectoris (principal); I10 Essential (primary) hypertension; Z86.718 Personal history of other venous thrombosis and embolism; Z72.89 Other problems related to lifestyle; Z79.899 Other long term (current) drug therapy
CPT/HCPCS: 36415; 71045; 80053; 84484; 85025; 93005; 99285

== ENCOUNTER 2021-02-14 07:52 | Day surgery (SDC) | payer MEDICARE, BC ==
[~2021-02-14] VITALS: Ht 172.7 cm; Wt 95.0 kg
[~2021-02-14 07:52] MED LIST changes: +BUPIVAcaine/PF 2.5mg/ml (0.25%) 10ml vial ONE; +CHOL400T8 PO; +CLOP75TA34 PO; +DOCUMENT DATE & TIME OF BETA-BLOCKER PO ONE; +GABA-530 PO; -METO-292 PO; +MULT-1085 PO; +OMEG-133 PO; +albuterol 2.5 MG/3 ML nebule NEB ONE; +ceFAZolin 2gm in dextrose, iso 50 ML IV ONE; +famotidine 20mg tablet PO ONE; +ringers solution, lacted 1,000 ML IV SCH
[2021-02-14 08:25] VITALS: BP 114/63
[2021-02-14] MEDS ORDERED: morphine 4 MG/ML inj SYRINge IV PRN (11:00)
[2021-02-14] MEDS ORDERED: meperidine/PF 25mg/ml syringe IV PRN ×3 (11:00)
[2021-02-14] MEDS ORDERED: ringers solution, lacted 1,000 ML IV SCH (11:00)
[2021-02-14] MEDS ORDERED: ondansetron/PF 4mg/2ml inj IV PRN (11:00)
[2021-02-14] MEDS ORDERED: morphine 2 MG/ML inj. syringe IV PRN (11:00)
[2021-02-14] MEDS ORDERED: labetalol 20mg/4ml (5mg/ml) syringe IV PRN (11:00)
[2021-02-14] MEDS ORDERED: proCHLORperazine 10 MG/2 ml inj IV PRN (11:00)
[2021-02-14] MEDS ORDERED: acetaminophen 1,000mg/100ml IV 100 ML IV PRN (11:00)
[2021-02-14] MEDS ORDERED: hydrALAZINE 20mg/ml inj. IV PRN (11:00)
[2021-02-14] MEDS ORDERED: fentaNYL/PF 50MCG/1 ML 2ML syringe ONE (11:48)
[2021-02-14] MEDS ORDERED: midazolam 1 mg/ML 2ml injection ONE (11:50)
[2021-02-14] MEDS ORDERED: LIDOcaine 0.5% (5mg/ml) 50ml vial ONE (11:55)
[2021-02-14] MEDS ORDERED: propofol inj 20 ML IV ONE (11:55)
[2021-02-14 12:17] VITALS: BP 114/64
--- NOTE | 2021-02-14 12:17 | NUR ---
Received from OR via , accompanied by Anesthesiologist DR CHOPRA and report given by Anesthesiolgist. AWAKE AND BECKY PAIN. VITALS STABLE. DRESSING DI.
[2021-02-14 12:27] VITALS: BP 141/66
[2021-02-14 12:37] VITALS: BP 153/72
[2021-02-14 12:47] VITALS: BP 150/70
--- NOTE | 2021-02-14 12:57 | NUR ---
AWAKE AND ORIENTED. VITALS STABLE. DRESSING DI. BECKY PAIN. HOME WITH HIS AT THIS TIME.
== END 2021-02-14 12:57 | disposition home or self-care (01) ==
LOC: PAS 07:52
PROVIDERS: ATTEND Orthopaedic Surgery Hand Surgery
DX: M65.342 Trigger finger, left ring finger (principal); M65.332 Trigger finger, left middle finger; G56.02 Carpal tunnel syndrome, left upper limb; J44.9 Chronic obstructive pulmonary disease, unspecified; K21.9 Gastro-esophageal reflux disease without esophagitis; N40.0 Benign prostatic hyperplasia without lower urinary tract symptoms; M19.90 Unspecified osteoarthritis, unspecified site; G89.29 Other chronic pain; I25.10 Atherosclerotic heart disease of native coronary artery without angina pectoris; I10 Essential (primary) hypertension; I25.2 Old myocardial infarction; E66.9 Obesity, unspecified; Z68.32 Body mass index [BMI] 32.0-32.9, adult; Z95.5 Presence of coronary angioplasty implant and graft; Z85.828 Personal history of other malignant neoplasm of skin; Z87.891 Personal history of nicotine dependence; Z86.718 Personal history of other venous thrombosis and embolism; Z98.890 Other specified postprocedural states
CPT/HCPCS: 26055; 64721; 82948; J2001; J2250; J2704; J3010; J3490; A4215; J7120

== ENCOUNTER 2021-03-14 05:22 | Day surgery (SDC) | payer MEDICARE, BC ==
[2021-03-07 10:24] LABS: BASOPHILS % (AUTO) 0.5 % (0-1); EOSINOPHILS # (AUTO) 0.2 X10'3 (0-0.9); EOSINOPHILS % (AUTO) 2.5 % (0-6); LYMPHOCYTES # (AUTO) 1.1 X10'3 (1.1-4.8); MEAN CORPUSCULAR HEMOGLOBIN 32.4 PG (27.0-31.0); MEAN CORPUSCULAR HGB CONC 33.4 g/dL (33.0-36.5); MEAN CORPUSCULAR VOLUME 96.9 FL (78-98); MEAN PLATELET VOLUME 9.4 FL (7.4-10.4); MONOCYTES # (AUTO) 0.5 X10'3 (0-0.9); MONOCYTES % (AUTO) 7.6 % (2-12); NEUTROPHILS # (AUTO) 4.5 X10'3 (1.8-7.7); NEUTROPHILS % (AUTO) 71.4 % (42-75); PRE OP HEMATOCRIT 43.4 % (42.0-52.0); PRE OP HEMOGLOBIN 14.5 g/dL (14.0-17.9); PRE OP PLATELET COUNT 151 X10'3 (140-440); RED BLOOD COUNT 4.48 X10'6 (4.70-6.10); RED CELL DISTRIBUTION WIDTH 14.6 % (11.5-14.5)
[2021-03-07 10:41] LABS: ALBUMIN 3.6 G/DL (3.4-5.0); ALBUMIN/GLOBULIN RATIO 1.1 (1.1-1.5); ALKALINE PHOSPHATASE 52 IU/L (46-116); BLOOD UREA NITROGEN 15 MG/DL (7-18); BUN/CREATININE RATIO 10.3 (5.4-32.0); CALCIUM 8.7 MG/DL (8.5-10.1); CHLORIDE 104 MMOL/L (99-107); CREATININE 1.46 MG/DL (0.60-1.10); PRE OP ALT 13 U/L (30-65); PRE OP ANION GAP 6 (8-16); PRE OP AST 19 U/L (10-37); PRE OP BILIRUB, TOTAL 0.5 MG/DL (0.0-1.0); PRE OP GLUCOSE 106 MG/DL (70-104); PRE OP POTASSIUM 4.5 MMOL/L (3.4-5.1); PRE OP SODIUM 141 MMOL/L (135-145); TOTAL CARBON DIOXIDE 31.2 MMOL/L (24-32); TOTAL PROTEIN 6.8 G/DL (6.4-8.2); eGFR 47 ML/MIN
[~2021-03-14] VITALS: Ht 172.7 cm; Wt 94.8 kg
[2021-03-14] VITALS (7 sets, daily range): BP systolic 125–154; BP diastolic 71–79
[~2021-03-14 05:22] MED LIST changes: +ALBU8.5H8 INH; -BUPIVAcaine/PF 2.5mg/ml (0.25%) 10ml vial ONE; -DOCUMENT DATE & TIME OF BETA-BLOCKER PO ONE; -albuterol 2.5 MG/3 ML nebule NEB ONE; -ceFAZolin 2gm in dextrose, iso 50 ML IV ONE; -famotidine 20mg tablet PO ONE
[2021-03-14] MEDS ORDERED: famotidine 20mg tablet PO ONE (05:30)
[2021-03-14] MEDS ORDERED: DOCUMENT DATE & TIME OF BETA-BLOCKER PO ONE (05:30)
[2021-03-14] MEDS ORDERED: cefazolin/dext.iso 2gm/100ml 100 ML IV ONE (05:30)
[2021-03-14] MEDS ORDERED: BUPIVAcaine/PF 2.5 mg/ml (0.25%) 30ml vial ONE (07:04)
[2021-03-14] MEDS ORDERED: fentaNYL/PF 50MCG/1 ML 2ML syringe ONE (07:15)
[2021-03-14] MEDS ORDERED: LIDOcaine 0.5% (5mg/ml) 50ml vial ONE (07:16)
[2021-03-14] MEDS ORDERED: midazolam 1 mg/ML 2ml injection ONE (07:16)
[2021-03-14] MEDS ORDERED: morphine 2 MG/ML inj. syringe IV PRN (07:20)
[2021-03-14] MEDS ORDERED: morphine 4 MG/ML inj SYRINge IV PRN (07:20)
[2021-03-14] MEDS ORDERED: proCHLORperazine 10 MG/2 ml inj IV PRN (07:20)
[2021-03-14] MEDS ORDERED: meperidine/PF 25mg/ml syringe IV PRN ×3 (07:20)
[2021-03-14] MEDS ORDERED: ringers solution, lacted 1,000 ML IV SCH (07:20)
[2021-03-14] MEDS ORDERED: ondansetron/PF 4mg/2ml inj IV PRN (07:20)
--- NOTE | 2021-03-14 08:47 | NUR ---
PT UP AND ABLE TO AMBULATE SAFELY, VOIDED, D/C INSTRUCTIONS GIVEN AND GONE OVER W/PT WHO VERBALIZED UNDERSTANDING. PT D/CD TO HOME VIA W/C TO PRIVATE VEHICLE W/O INCIDENT. Addendum: 03/14/21 at 0909 by Carlita Cardenas RN Amended: Links added.
== END 2021-03-14 08:46 | disposition home or self-care (01) ==
LOC: PAS 05:22
PROVIDERS: ATTEND Orthopaedic Surgery Hand Surgery
DX: G56.01 Carpal tunnel syndrome, right upper limb (principal); I10 Essential (primary) hypertension; E11.9 Type 2 diabetes mellitus without complications; E78.5 Hyperlipidemia, unspecified; J44.9 Chronic obstructive pulmonary disease, unspecified; I25.2 Old myocardial infarction; I25.10 Atherosclerotic heart disease of native coronary artery without angina pectoris; N40.0 Benign prostatic hyperplasia without lower urinary tract symptoms; K21.9 Gastro-esophageal reflux disease without esophagitis; M19.90 Unspecified osteoarthritis, unspecified site; E66.9 Obesity, unspecified; Z68.31 Body mass index [BMI] 31.0-31.9, adult; Z87.891 Personal history of nicotine dependence; Z95.1 Presence of aortocoronary bypass graft; Z98.890 Other specified postprocedural states; Z82.3 Family history of stroke; Z80.9 Family history of malignant neoplasm, unspecified
CPT/HCPCS: 29848; 36415; 80053; 82948; 85025; J2001; J2250; J3010; J3490; A4215; A6402; A6449; J7120